=== PATIENT | female | born 1935 | race Caucasian/White ===

== ENCOUNTER 2018-02-24 10:36 | Inpatient (IN) | payer OTHER, MEDICARE ==
[~2018-02-24] VITALS: Ht 160 cm; Wt 59.0 kg
[~2018-02-24 10:36] MED LIST: ALLOPURINOL100 M1 PO; ASPIRIN81 M4 PO; MAGNESIUM OXID400 M1 PO; METFORMIN HCL500 M3 PO; METOPROLOL TART50 M1 PO; NORVASC10 M1 PO; SIMVASTATIN20 M2 PO; VALSARTAN-HCTZ1 EAC1 PO
--- NOTE | 2018-02-24 10:42 | ED SYNCOPE COMPLAINT ---
History of Present Illness General Chief Complaint: Syncope and Near-Syncope Stated Complaint: SYNCOPE Source: patient, family Exam Limitations: no limitations Vital Signs & Intake/Output Vital Signs & Intake/Output Vital Signs Date Time Temp Pulse Resp B/P B/P Pulse O2 O2 Flow FiO2 Mean Ox Delivery Rate 02/24 1755 99.5 102 18 126/90 96 02/24 1744 Room Air Room Air 02/24 1639 98.6 108 20 110/63 93 Room Air Room Air 02/24 1355 98.4 109 22 117/58 96 Room Air 02/24 1309 108 18 118/68 98 Room Air 02/24 1045 97.7 112 20 123/67 93 Room Air Allergies Coded Allergies: No Known Allergies (05/31/17) Triage Nurses Notes Reviewed? 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 Patient states she had a syncopal episode patient is 2 weeks and too much pain to get up where she laid there until the next day with patient then was able to get up Family members found out about the event today and advised patient presents emergency room. Patient did not use her lifeline. Patient at rest denies any pain however upon ambulation complete the bilateral knee pain. Denies any headache fever chills chest pain shortness of breath cough nausea vomiting abdominal pain or low back pain. Patient is complaining of increased frequency of urination. (Karissa BURRIS,Lauri) Reconcile Medications Allopurinol 100 MG TABLET 1 TAB PO DAILY GOUT (Reported) Aspirin (Aspirin*) 81 MG TAB.CHEW 1 TAB PO DAILY heart (Reported) Metformin HCl 500 MG TABLET 1 TAB PO DAILY DIABETES (Reported) Metoprolol Tartrate 50 MG TABLET 0.5 TAB PO BID HEART (Reported) Simvastatin (Simvastatin*) 20 MG TABLET 1 TAB PO QPM CHOLESTEROL (Reported) Valsartan/Hydrochlorothiazide (Valsartan-Hctz 160-12.5 MG Tab) 160 MG-12.5 MG TABLET 1 TAB PO DAILY HEART (Reported) (Chris Mccarthy DO) Past History Travel History Traveled to [place] past 21 day No Medical History Any Pertinent Medical History? see below for history Neurological: vertigo EENT: NONE Cardiovascular: hypertension, hyperlipidemia, IRREGULAR HEART BEAT Respiratory: NONE Gastrointestinal: NONE Hepatic: NONE Renal: NONE Musculoskeletal: NONE Psychiatric: NONE Endocrine: diabetes Blood Disorders: NONE Cancer(s): breast cancer FANCY PACKER/Reproductive: NONE History of MRSA: No History of VRE: No History of CDIFF: No Surgical History Surgical History: non-contributory Psychosocial History Who do you live with Patient/Self What is your primary language Bengali Family History Family History, If Any: maternal grandmother MOTHER FH: diabetes mellitus FATHER FH: myocardial infarction Hx Contributory? No (Lauri Rivero) Review of Systems Review of Systems Constitutional: Reports: see HPI, malaise, weakness. EENTM: Reports: no symptoms. Respiratory: Reports: no symptoms. Cardiovascular: Reports: no symptoms. GI: Reports: no symptoms. Genitourinary: Reports: no symptoms. Musculoskeletal: Reports: see HPI. Skin: Reports: no symptoms. Neurological/Psychological: Reports: no symptoms. All Other Systems: Reviewed and Negative (Lauri Rivero) Physical Exam Physical Exam General Appearance: no apparent distress, alert, comfortable Head: atraumatic Eyes: Bilateral: normal appearance, PERRL, EOMI. Ears, Nose, Throat: normal pharynx, normal ENT inspection Neck: normal inspection, no midline tenderness Respiratory: normal breath sounds, chest non-tender, no respiratory distress Cardiovascular: tachycardia Gastrointestinal: normal bowel sounds, soft, non-tender Psychiatric: awake, alert, oriented x 3 Cranial Nerves: normal hearing, normal speech, PERRL Coordination/Gait: normal finger to nose Skin: intact, normal color Comments: Bilateral upper extremities nontender full active range of motion Lateral knees normal inspection generalized point tenderness noted patient able to perform straight leg raise nontender hip and ankle Core Measures ACS in differential dx? Yes CVA/TIA Diagnosis: No Sepsis Present: No Sepsis Focused Exam Completed? No (Lauri Rivero) Progress Differential Diagnosis: AMI, aortic dissection, aortic valve, drug induced syncope, hyperventilation, orthostatic syncope, other valvular disease, pericardial tamponade, pulmonary embolus, seizure, sick sinus syndrome, subarachnoid hem., TIA/CVA, vasodepressor syncope, ventricular tach/fib Plan of Care: Orders Procedure Date/time Status Consistent Carbohydrate 2 02/24 D Active Pathway - chart 02/24 1824 Active House Staff 02/24 1824 Active Patient Data 02/24 1824 Active Code Status 02/24 1824 Active FingerStick- Glucose 02/24 1752 Active Weight 02/24 1738 Active Vital Signs 02/24 1738 Active Teach/Educate 02/24 1738 Active Pain Treatment and Response 02/24 1738 Active Nutritional Intake, Monitor 02/24 1738 Active Isolation 02/24 1738 Active Intake & Output 02/24 1738 Active Patient Care Conference 02/24 1738 Active Activity/Ambulation 02/24 1738 Active ED Holding Orders 02/24 1554 Active Admit to inpatient 02/24 1554 Active Code Status 02/24 1554 Complete Patient Data 02/24 1553 Active ED Holding Orders 02/24 1539 Active Admit to inpatient 02/24 1539 Active Code Status 02/24 1539 Complete TROPONIN LEVEL 02/24 1517 Complete EKG 02/24 1517 Active URINALYSIS 02/24 1143 Active Telemetry/Lamination Machine Operator 02/24 1057 Active THYROID STIMULATING HORMONE 02/24 1055 Complete TROPONIN LEVEL 02/24 1055 Complete MAGNESIUM 02/24 1055 Complete FREE T4 02/24 1055 Complete COMPREHENSIVE METABOLIC PANEL 02/24 1055 Complete CREATINE PHOSPHOKINASE 02/24 1055 Complete CBC WITHOUT DIFFERENTIAL 02/24 1055 Complete Intake & Output 02/24 1047 Active EKG 02/24 1043 Active VTE Mechanical Prophylaxis 02/24 UNK Active MISTAKE 02/24 UNK Active Telemetry/Lamination Machine Operator 02/24 UNK Active Intake & Output 02/24 UNK Active Hemoccult 02/24 UNK Active FingerStick- Glucose 02/24 UNK Active Current Medications Sig/Kvng Start time Last Medication Dose Stop Time Status Admin Metoprolol Tartrate 25 MG BID 02/24 2100 AC (Lopressor) Atorvastatin Calcium 10 MG 1700 02/24 1830 AC (Lipitor) Allopurinol 100 MG DAILY 02/24 1828 AC (Zyloprim) Aspirin 81 MG DAILY 02/25 1828 AC (Aspirin) Laboratory Tests 02/24/18 1655: Troponin I 0.29 *H 02/24/18 1251: Anion Gap 14, Estimated GFR 43 L, BUN/Creatinine Ratio 25.0, Glucose 234 H, Calcium 9.4, Magnesium 1.2 L, Total Bilirubin 1.0, AST 21, ALT 17, Alkaline Phosphatase 61, Creatine Kinase 42, Troponin I 0.36 *H, Total Protein 7.7, Albumin 4.2, Globulin 3.5, Albumin/Globulin Ratio 1.2, TSH 1.380, Free T4 0.97, CBC w Diff NO MAN DIFF REQ, RBC 4.73, MCV 82.4, MCH 27.6, MCHC 33.5, RDW 15.0 H , MPV 7.5, Gran % 72.6, Lymphocytes % 17.6 L, Monocytes % 9.4 H, Eosinophils % 0.1, Basophils % 0.3, Absolute Granulocytes 7.1 H, Absolute Lymphocytes 1.7, Absolute Monocytes 0.9 H, Absolute Eosinophils 0, Absolute Basophils 0 02/24/18 1056: Creatine Kinase Cancelled Patient on initial presentation resting, bedside was alert and oriented no apparent distress and denies any pain at rest. Patient does have concerns of syncope and new EKG changes of left bundle branch block. gambling monitor placed. CT scan or resulted no acute findings discussed results the patient X-rays are unremarkable for patient's bilateral knee pain. Patient requested pain medications for her knees. Tylenol codeine was administered. Due to new EKG changes and syncope telemetry admission was advised Discussed patient with Dr. Mccarthy was aware patient was also given magnesium supplementation and IV fluids for concern MARIA TERESA Discussed patient with Dr. Kaur who is aware of elevated troponin and admission Upon admission that there is no indication Dr. Kaur to administer heparin Discussed admission with patient and family members were aware had no questions and agreed Diagnostic Imaging: Viewed by Me: Radiology Read, CT Scan. Radiology Impression: no acute abnormality, no fracture Initial ED EKG: sinus tachycardia 110 bpm,lbbb Prior EKG: changed Comments: PATIENT: DILIP MCKINLEY PRESENT AGE: 82 PATIENT ACCOUNT NO: [id number] : 34 LOCATION: [facility] ORDERING PHYSICIAN: Lauri BURRIS SERVICE DATE: 02/24/18 EXAM TYPE: CAT - CT ABD & PELVIS W/O IV CONTRAS; CT CHEST WO IV CONTRAST EXAMINATION: CT ABDOMEN chest, AND PELVIS WITHOUT CONTRAST CLINICAL INFORMATION: Fall with head strike. Syncope. COMPARISON: Chest 07/13/2015 TECHNIQUE: Multidetector volumetric imaging was performed from the superior aspect of the liver through the pubic symphysis. Sagittal and coronal reformatted images were obtained on the technologist's workstation. DLP: 529 mGy-cm FINDINGS CHEST: LUNGS: Both lungs are well-expanded and clear of acute pneumonic consolidation. No mass, consolidation seen. There is small perihilar nodule right lower lobe, axial image 30, series 3, tumor nodule left lower lobe axial image 29, series 3, 4 minute nodule left lower lobe costophrenic sulcus image 275, series 5. Mediastinum: There is a small fibrin nodule right thyroid lobe which appears enlarged. The left thyroid lobe appears unremarkable. The central trachea and bronchi appear widely patent. The coronary artery calcifications present. No pericardial effusion seen. Atherosclerotic calcification of thoracic aorta is noted. A small hiatal hernia is present. Pleura: There is no pleural thickening, effusion or calcified pleural plaques. Axilla: There are surgical stas in left breast and left axilla. No abnormal size lymph nodes or mass seen in the axilla. The chest wall otherwise appears unremarkable. ABDOMEN AND PELVIS: LIVER, GALLBLADDER, AND BILIARY TREE: The liver is normal in size, shape, and attenuation. No focal hepatic lesion or biliary ductal dilatation is present. There is a faint radiopaque 5 mm gallstone without wall thickening of pericholecystic fluid collection. PANCREAS: Unremarkable. SPLEEN: Unremarkable. ADRENAL GLANDS: Unremarkable. KIDNEYS AND URETERS: The kidneys are normal in size, shape, and attenuation. No hydronephrosis, hydroureter, or calculi seen. No perinephric stranding. BLADDER: Unremarkable. GASTROINTESTINAL TRACT: There is diffuse colonic diverticulosis without diverticulitis. There is no colonic or small bowel distention. No free air or free fluid. ABDOMINAL WALL: No significant hernia is appreciated. LYMPH NODES: Normal. VASCULAR: There is atherosclerotic calcification of the entire abdominal aorta without aneurysmal dilatation. Largest segment of abdominal aorta measures 2.4 x 2.4 cm in midabdomen. Mild dilation of the right common iliac arteries noted measuring 1.6 cm axial image 80, series 2. PELVIC VISCERA: There are calcified nodules in left axilla and several stas in the pelvis from previous intervention. The uterus is likely surgically absent or nonvisualized. The bladder is nondistended. Moderate stool and gas is seen in the colon OSSEOUS STRUCTURES: There are degenerative disc changes mid thoracic spine, L5-S1, L4-L5, L3-L4 disc levels. No lytic or sclerotic process seen. IMPRESSION: No acute process seen in the chest or abdomen. There is small bilateral pulmonary nodules. Recommend follow-up as per Fleischner guidelines. No acute consolidation or abnormal mediastinal lymphadenopathy. There is previous left breast surgery and left axillary dissection. There is a postsurgical changes in the pelvis and dense left adnexal calcification. Likely patient has undergone total hysterectomy. Diffuse colonic diverticulosis without diverticulitis. The appendix is normal. Atherosclerotic dilation of right common iliac artery and atherosclerotic changes throughout the abdominal aorta. DICTATED BY: Kory Draper MD DATE/TIME DICTATED:02/24/181303 [employer] SOFTWARE DEVELOPER:STEPAN DATE/TIME TRANSCRIBED:02/24/181303 CONFIDENTIAL, DO NOT COPY WITHOU PATIENT: DILIP MCKINLEY PRESENT AGE: 82 PATIENT ACCOUNT NO: [id number] : 34 LOCATION: [facility] ORDERING PHYSICIAN: Lauri BURRIS SERVICE DATE: 02/24/18 EXAM TYPE: CAT - CT CERV SPINE WO IV CONTRAST; CT HEAD WO IV CONTRAST Addendum: In the impression the first line should correctly read as follows, No acute intracranial process seen. Addendum Signed by: Kory Draper MD 02/24/18 130 EXAMINATION: CT HEAD AND CT CERVICAL SPINE. CLINICAL INFORMATION: Syncope and head strike. COMPARISON: CT brain 05/31/2017 TECHNIQUE: 5 mm thin axial and 2.5 minutes and coronal images of brain were obtained without contrast. Subsequently axial 2.5 minutes and and reformatted 2 mm thin sagittal and coronal images of cervical spine were obtained. DLP 910. FINDINGS: BRAIN: There is no acute intra-axial, extra-axial bleed or midline shift. There is extra-axial calcified left frontal meningioma adjacent cortical compression but no vasogenic edema seen. There is no acute infarct in evolution. The lateral ventricles are enlarged and so other cortical sulci. There is diffuse periventricular hypodensity suggestive of chronic small vessel ischemic changes. Bone windows reveal no calvarial abnormality. The paranasal sinuses and bilateral mastoid air cells are well-aerated. CERVICAL SPINE: Sagittal reconstructed images there is mild straightening of cervical lordosis. The vertebral heights and alignment appears normal. Loss of C5-C6 and C6-C7 disc heights with mild posterior spondylosis at C3-C4 through C6-C7 disc levels is noted. The neural foramina are widely patent. There is bilateral C2-C3, C3-C4, C4-C5 facet joint arthropathy noted. There is a moderate-sized hypodense lesion right thyroid lobe with mild right thyroid lobe enlargement. The prevertebral and paravertebral soft tissues are normal. IMPRESSION: Acute intracranial process seen. Calcified left frontal lobe meningioma is stable. Mild cerebral atrophy and chronic small vessel ischemic changes in both cerebral hemispheres appears stable. No acute fracture or dislocation in cervical spine. Degenerative disc changes C5-C6 and C6-C7 disc levels. There is posterior spondylosis throughout cervical spine. DICTATED BY: Kory Draper MD DATE/TIME DICTATED:02/24/181236 [employer] SOFTWARE DEVELOPER:AVITIA DATE/TIME TRANSCRIBED:02/24/181236 CONFIDENTIAL, DO NOT COPY WITHOUT APPROPRIATE AUTHORIZATION. <Electronically signed in Other Vendor System> SIGNED BY: Kory Draper MD 02/24/18 1248 PATIENT: FRANSISCO THOMAS PRESENT AGE: 71 PATIENT ACCOUNT NO: [id number] : [birth year] LOCATION: [facility] ORDERING PHYSICIAN: Lauri BURRIS SERVICE DATE: 02/24/18 EXAM TYPE: RAD - XRY-PORTABLE CHEST XRAY EXAMINATION: XR PORTABLE CHEST CLINICAL INFORMATION: Shortness of breath. COMPARISON: Prior chest regressed, most recently 08/05/2017 TECHNIQUE: Portable frontal view of the chest was obtained. FINDINGS: There is stable cardiomegaly. The mediastinum is stable and unremarkable, accounting for rotation. The lung garcia are clear, without infiltrate, effusion or pneumothorax. There is no acute osseous abnormality. IMPRESSION: No active cardiopulmonary disease. There is stable cardiomegaly, without congestive heart failure DICTATED BY: Miguel Amaral MD DATE/TIME DICTATED:02/24/181205 [employer] SOFTWARE DEVELOPER:RADRosendaAVITIA DATE/TIME TRANSCRIBED:02/24/181205 CONFIDENTIAL, DO NOT COPY WITHOUT APPROPRIATE AUTHORIZATION. <Electronically signed in Other Vendor System> SIGNED BY: Miguel Amaral MD 02/24/18 1216 (Lauri Rivero) Departure Departure Disposition: STILL A PATIENT Condition: Guarded Clinical Impression Primary Impression: Non-STEMI (non-ST elevated myocardial infarction) Secondary Impressions: MARIA TERESA (acute kidney injury), EKG abnormality, Hypomagnesemia, Knee contusion, Syncope Referrals: Georgina LESLIE,Dilma Ortiz (PCP/Family) Departure Forms: Customer Survey General Discharge Information Admission Note Spoke With: Nelson Hein MD Documentation of Exam: Documentation of any treatments & extenuating circumstances including Concerns Regarding Discharge (functional status, medication knowledge or non-compliance, living conditions, etc.) that warrant an admission rather than observation: [ Patient requires telemetry admission repeat EKG repeat troponin repeat labs cardiology consultation case management consultation] (Lauir Rivero) PA/RETURNED CASE INSPECTOR Co-Sign Statement Statement: ED Attending supervision documentation- [] I saw and evaluated the patient. I have also reviewed all the pertinent lab results and diagnostic results. I agree with the findings and the plan of care as documented in the PA's/RETURNED CASE INSPECTOR's documentation. [X] I have reviewed the ED Record and agree with the PA's/RETURNED CASE INSPECTOR's documentation. [] Additions or exceptions (if any) to the PAs/RETURNED CASE INSPECTOR's note and plan are summarized below: [] (Chris Mccarthy DO)
--- NOTE | 2018-02-24 12:48 | CT SCAN REPORT ---
EXAMINATION: CT HEAD AND CT CERVICAL SPINE. CLINICAL INFORMATION: Syncope and head strike. COMPARISON: CT brain 05/31/2017 TECHNIQUE: 5 mm thin axial and 2.5 minutes and coronal images of brain were obtained without contrast. Subsequently axial 2.5 minutes and and reformatted 2 mm thin sagittal and coronal images of cervical spine were obtained. DLP 910. FINDINGS: BRAIN: There is no acute intra-axial, extra-axial bleed or midline shift. There is extra-axial calcified left frontal meningioma adjacent cortical compression but no vasogenic edema seen. There is no acute infarct in evolution. The lateral ventricles are enlarged and so other cortical sulci. There is diffuse periventricular hypodensity suggestive of chronic small vessel ischemic changes. Bone windows reveal no calvarial abnormality. The paranasal sinuses and bilateral mastoid air cells are well-aerated. CERVICAL SPINE: Sagittal reconstructed images there is mild straightening of cervical lordosis. The vertebral heights and alignment appears normal. Loss of C5-C6 and C6-C7 disc heights with mild posterior spondylosis at C3-C4 through C6-C7 disc levels is noted. The neural foramina are widely patent. There is bilateral C2-C3, C3-C4, C4-C5 facet joint arthropathy noted. There is a moderate-sized hypodense lesion right thyroid lobe with mild right thyroid lobe enlargement. The prevertebral and paravertebral soft tissues are normal. IMPRESSION: Acute intracranial process seen. Calcified left frontal lobe meningioma is stable. Mild cerebral atrophy and chronic small vessel ischemic changes in both cerebral hemispheres appears stable. No acute fracture or dislocation in cervical spine. Degenerative disc changes C5-C6 and C6-C7 disc levels. There is posterior spondylosis throughout cervical spine.
--- NOTE | 2018-02-24 13:12 | RADIOLOGY REPORT ---
EXAMINATION: XR KNEE, RIGHT XR KNEE, LEFT CLINICAL INFORMATION: Bilateral knee pain. Fall. COMPARISON: None TECHNIQUE: AP, lateral, and both oblique views of each knee. FINDINGS: RIGHT KNEE: Chondrocalcinosis is present in the medial and lateral compartments. Bones are osteopenic. Osteoarthritis in the medial and patellofemoral compartments is characterized by joint space narrowing, articular surface irregularity, and marginal osteophytes. More mild osteoarthritis is present in the lateral compartment. No joint effusion. Calcific atherosclerosis is present in the runoff arteries. LEFT KNEE: No fracture or malalignment. Bones are osteopenic. There is moderate to severe medial compartment osteoarthritis with marked joint space narrowing, small marginal osteophytes, subchondral sclerosis, and vacuum phenomenon. More mild to moderate osteoarthritis present in the lateral and patellofemoral compartments. There is marked chondrocalcinosis. Trace joint effusion. Calcific atherosclerosis is present in the popliteal and runoff arteries. IMPRESSION: 1. No acute fracture or malalignment. 2. 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 3. Trace left knee joint effusion. 4. Marked chondrocalcinosis
[2018-02-24 13:13] LABS: ABSOLUTE BASOPHIL COUNT 0 /CUMM (0.0-0.2); ABSOLUTE EOSINOPHIL COUNT 0 /CUMM (0.0-0.7); ABSOLUTE GRANULOCYTE CT 7.1 /CUMM (1.4-6.5); ABSOLUTE LYMPH COUNT 1.7 /CUMM (1.2-3.4); ABSOLUTE MONOCYTE COUNT 0.9 /CUMM (0.10-0.60); BASOPHIL % 0.3 % (0.0-2.0); EOSINOPHIL % 0.1 % (0-5); GRANULOCYTE % 72.6 % (42.2-75.2); MEAN CORPUSCULAR HGB 27.6 PG (27.0-31.0); MEAN CORPUSCULAR HGB CONC 33.5 G/DL (33.0-37.0); MEAN CORPUSCULAR VOLUME 82.4 FL (81.0-99.0); MEAN PLATELET VOLUME 7.5 FL (7.4-10.4); PLATELET COUNT 232 /CUMM (130-400); RED BLOOD CELL CT 4.73 /CUMM (4.20-5.40); WHITE BLOOD CELL COUNT 9.7 /CUMM (4.8-10.8)
--- NOTE | 2018-02-24 13:21 | CT SCAN REPORT ---
EXAMINATION: CT ABDOMEN chest, AND PELVIS WITHOUT CONTRAST CLINICAL INFORMATION: Fall with head strike. Syncope. COMPARISON: Chest 07/13/2015 TECHNIQUE: Multidetector volumetric imaging was performed from the superior aspect of the liver through the pubic symphysis. Sagittal and coronal reformatted images were obtained on the technologist's workstation. DLP: 529 mGy-cm FINDINGS CHEST: LUNGS: Both lungs are well-expanded and clear of acute pneumonic consolidation. No mass, consolidation seen. There is small perihilar nodule right lower lobe, axial image 30, series 3, tumor nodule left lower lobe axial image 29, series 3, 4 minute nodule left lower lobe costophrenic sulcus image 275, series 5. Mediastinum: There is a small fibrin nodule right thyroid lobe which appears enlarged. The left thyroid lobe appears unremarkable. The central trachea and bronchi appear widely patent. The coronary artery calcifications present. No pericardial effusion seen. Atherosclerotic calcification of thoracic aorta is noted. A small hiatal hernia is present. Pleura: There is no pleural thickening, effusion or calcified pleural plaques. Axilla: There are surgical stas in left breast and left axilla. No abnormal size lymph nodes or mass seen in the axilla. The chest wall otherwise appears unremarkable. ABDOMEN AND PELVIS: LIVER, GALLBLADDER, AND BILIARY TREE: The liver is normal in size, shape, and attenuation. No focal hepatic lesion or biliary ductal dilatation is present. There is a faint radiopaque 5 mm gallstone without wall thickening of pericholecystic fluid collection. PANCREAS: Unremarkable. SPLEEN: Unremarkable. ADRENAL GLANDS: Unremarkable. KIDNEYS AND URETERS: The kidneys are normal in size, shape, and attenuation. No hydronephrosis, hydroureter, or calculi seen. No perinephric stranding. BLADDER: Unremarkable. GASTROINTESTINAL TRACT: There is diffuse colonic diverticulosis without diverticulitis. There is no colonic or small bowel distention. No free air or free fluid. ABDOMINAL WALL: No significant hernia is appreciated. LYMPH NODES: Normal. VASCULAR: There is atherosclerotic calcification of the entire abdominal aorta without aneurysmal dilatation. Largest segment of abdominal aorta measures 2.4 x 2.4 cm in midabdomen. Mild dilation of the right common iliac arteries noted measuring 1.6 cm axial image 80, series 2. PELVIC VISCERA: There are calcified nodules in left axilla and several stas in the pelvis from previous intervention. The uterus is likely surgically absent or nonvisualized. The bladder is nondistended. Moderate stool and gas is seen in the colon OSSEOUS STRUCTURES: There are degenerative disc changes mid thoracic spine, L5-S1, L4-L5, L3-L4 disc levels. No lytic or sclerotic process seen. IMPRESSION: No acute process seen in the chest or abdomen. There is small bilateral pulmonary nodules. Recommend follow-up as per Fleischner guidelines. No acute consolidation or abnormal mediastinal lymphadenopathy. There is previous left breast surgery and left axillary dissection. There is a postsurgical changes in the pelvis and dense left adnexal calcification. Likely patient has undergone total hysterectomy. Diffuse colonic diverticulosis without diverticulitis. The appendix is normal. Atherosclerotic dilation of right common iliac artery and atherosclerotic changes throughout the abdominal aorta.
--- NOTE | 2018-02-24 16:58 | History & Physical ---
Jimmie Titus 02/24/18 0664: General Information and HPI MD Statement: I have seen and personally examined DILIP MCKINLEY and documented this H&P. 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 According to the patient, she passed out on Saturday night, woke up Saturday morning, does not remember the events in between. She denies feeling dizzy or lightheaded at the time of events. She initially fell and hit anterior aspect of her knees then fell backwards and hit her head. The patient has presented to the hospital with similar symptoms in past, she has Linq monitor. The patient denies exertional dyspnea or chest pain. The patient states that she has not been drinking enough water, she is incontinent of urine and is affraid to have "accidents" if she drinks water. Denies tobacco, EtOH or illicit drug use. Allergies/Medications Allergies: Coded Allergies: No Known Allergies (05/31/17) Home Med list Allopurinol 100 MG TABLET 1 TAB PO DAILY GOUT (Reported) Aspirin (Aspirin*) 81 MG TAB.CHEW 1 TAB PO DAILY heart (Reported) Metformin HCl 500 MG TABLET 1 TAB PO DAILY DIABETES (Reported) Metoprolol Tartrate 50 MG TABLET 0.5 TAB PO BID HEART (Reported) Simvastatin (Simvastatin*) 20 MG TABLET 1 TAB PO QPM CHOLESTEROL (Reported) Valsartan/Hydrochlorothiazide (Valsartan-Hctz 160-12.5 MG Tab) 160 MG-12.5 MG TABLET 1 TAB PO DAILY HEART (Reported) Past History Travel History Traveled to [place] past 21 day No Medical History Neurological: vertigo EENT: NONE Cardiovascular: hypertension, hyperlipidemia, IRREGULAR HEART BEAT Respiratory: NONE Gastrointestinal: NONE Hepatic: NONE Renal: NONE Musculoskeletal: NONE Psychiatric: NONE Endocrine: diabetes Blood Disorders: NONE Cancer(s): breast cancer 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 Denies: chills, diaphoresis, fever, malaise. EENTM: Denies: blurred vision, double vision, visual changes, eye pain, eye drainage, eye tearing, icterus, ear discharge, ear pain, ear redness, hearing changes, nasal congestion, epistaxis, nasal pain, throat pain. Cardiovascular: Reports: syncope. Denies: chest pain, edema, orthopena, palpitations, peripheral edema. Respiratory: Denies: cough, hemoptysis, orthopnea, short of breath, sputum production, stridor, wheezing. GI: Reports: no symptoms. Denies: abdominal pain. Genitourinary: Reports: see HPI. Denies: discharge, dysuria. Musculoskeletal: Reports: no symptoms. Skin: Reports: no symptoms. Neurological/Psychological: Reports: no symptoms. Hematologic/Endocrine: Reports: no symptoms. Immunologic/Allergic: Reports: no symptoms. All Other Systems: Reviewed and Negative Exam & Diagnostic Data Last 24 Hrs of Vital Signs/I&O Vital Signs Date Time Temp Pulse Resp B/P B/P Pulse O2 O2 Flow FiO2 Mean Ox Delivery Rate 02/24 1639 98.6 108 20 110/63 93 Room Air Room Air 02/24 1355 98.4 109 22 117/58 96 Room Air 02/24 1309 108 18 118/68 98 Room Air 02/24 1045 97.7 112 20 123/67 93 Room Air Intake & Output 02/24 1600 02/24 0800 02/24 0000 Intake Total 0 Output Total Balance 0 Intake, Oral 0 Patient 148 lb Weight Weight Reported by Patient Measurement Method Physical Exam General Appearance Alert, Oriented X3, Cooperative, No Acute Distress Skin No Rashes Skin Temp/Moisture Exam: Warm/Dry Sepsis Skin Exam (color): Normal for Ethnicity HEENT Atraumatic, PERRLA, EOMI, Mucous Membr. moist/pink Neck Supple Lymphatic Cervical nl Cardiovascular Regular Rate, systolic murmur Lungs Clear to Auscultation, Normal Air Movement Abdomen Normal Bowel Sounds, Soft, No Tenderness, No Hepatospenomegaly, No Masses Neurological Normal Speech, Strength at 5/5 X4 Ext, Normal Tone, Sensation Intact, Cranial Nerves 3-12 NL, Reflexes 2+ Extremities No Clubbing, No Cyanosis, No Edema, Normal Pulses, No Tenderness/ Swelling Vascular Normal Pulses, Pulses Symmetrical Assessment/Plan Assessment: This is a 82 year old female with PMH of DM, h/o TIA, shingles infection with mcfp gait instability who presents for further evaluation of syncope. In the ED, she was noted to have LBBB, positive troponin. Problem list: -Syncope -elevated troponin-peaked -LBBB-intermittent -Elevated creatinine -Hypo mg -Meningioma -bilateral pulmonary nodules Plan: -Vital signs per protocol -Monitor on telemetry -Accuchecks, INS SS -Troponin peaked -Cardiology was consulted in the ED, I also spoke with supervising producer Dr. Kaur with whom patient follows as an outpatient. Per Dr. Kaur, patient has h/o intermittent LBBB in her prior EKGs, he also does not recommend to start the patient on IV heparin at this point. However, if the patient develops chest pain , this should be reconsidered. -Follow cardiology recs. -Received Mg IV in the ED; recheck tomorrow -Maintain K>4 and Mg>2 -C/w metoprolol, statin, aspirin -echocardiogram -encourage oral hydration -may benefit from pacemaker placement. -Consider further evaluation for meningioma, patient was not aware of the finding, asymptomatic -Outpatient follow up for pulmonary nodules. -DVT PPX: SC heparin -Pt full code As Ranked By This Provider Problem List: 1. Syncope Core Measures/Misc (06/23) Acute Coronary Syndrome ACS Diagnosis: No Congestive Heart Failure Congestive Heart Failure Diagnosis No Cerebrovascular Accident CVA/TIA Diagnosis: No VTE (View Protocol) VTE Risk Factors Age>40 No Mechanical VTE Prophylaxis d/t N/A MechProphylax Ordered No VTE Pharm Prophylaxis d/t NA PharmProphylax ordered Sepsis (View protocol) Sepsis Present: No Nelson Hein MD 02/24/18 0688: Attending MD Review Statement Attending Statement Attending MD Statement: examined this patient, discuss w/resident/PA/AIR QUALITY TECHNICIAN, agreed w/resident/PA/AIR QUALITY TECHNICIAN, discussed with family, reviewed EMR data (avail), reviewed images, amended to note Attending Assessment/Plan: The patient is an 82 yo female with h/o DM2, TIA, HTN, HL, 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 She denied any prodrome, however fell backwards and hit her head. She waited until she "came out of it and states she had another episode. She did not take her mediation last 2 days. She has a Linq monitor. She denied any chest pain, dyspnea, palpitations, etc. At the time of my exam she was alert & oriented. Physical Exam: VS: T 98.6, P 112-108, R 20, BP 110/63, PO 98% RA HEENT: eyes- PERRLA, EOMI wilmer- moist mucosa Neck: no bruits or JVD Chest: clear Cor: RRR nl S1, S2 + 3/6 sys murm at LSB Abd: BS+, soft, NT, - HSM Ext: no edema, pulses 1+ Neuro: alert & oriented, non-focal exam Labs/Tests- as above. Impression/Plan: #S/P Syncope- may have had previous events. No chest pain, palpitations, etc. Possible arrhythmia? Plan: Admit to telemetry with continuous monitoring. #Elevated Troponin Level- concern regarding potential type II [place]. Plan: Will trend troponins . Cardiology consult- Dr. Troncoso group. If troponins continue to rise will start heparin. #LBBB- Dr. Kaur has seen on recent EKG. Plan: Follow troponins. Await cardiology input. #DM2- on metformin at home. Plan: Will resume metformin when close to discharge. #Hyperlipidemia- on Simvastatin. Plan: Continue Simvastatin. #Gout: on allopurinol. Plan: Continue allopurinol.
[2018-02-24 17:55] VITALS: BP 126/90
--- NOTE | 2018-02-24 21:53 | Admission Certification ---
Admission Certification Certification Statement - As attending physician, I certify that at the time of - admission, based on clinical presentation, severity of - symptoms, need for further diagnostic testing and - therapeutic interventions, and risk of adverse outcomes - without in-hospital treatment, in my clinical assessment, - this patient requires an acute hospital stay for a minimum - of two nights or longer. I have also considered psychsocial - factors such as support system, advanced age, financial - issues, cognitive issues, and failed out-patient treatments, - past re-admission history, safety of patient, and lack of - compliance as applicable. Specific rationale supporting this admission is: The patient presents for syncope and collapse x 2 events. Has LBBB on EKG and concern about tachy or stas arrhythmia. Also with elevated troponin level- ? type 2 [place]. Needs admission to telemetry, serial troponin levels, Cardiology consult Dr. Kaur. If troponin increasing will need IV heparin.
[2018-02-24 22:20] VITALS: BP 146/84
[2018-02-25 06:31] VITALS: BP 110/60
[2018-02-25 08:00] LABS: ABSOLUTE BASOPHIL COUNT 0 /CUMM (0.0-0.2); ABSOLUTE EOSINOPHIL COUNT 0.1 /CUMM (0.0-0.7); ABSOLUTE GRANULOCYTE CT 7.5 /CUMM (1.4-6.5); ABSOLUTE LYMPH COUNT 1.5 /CUMM (1.2-3.4); ABSOLUTE MONOCYTE COUNT 1.1 /CUMM (0.10-0.60); BASOPHIL % 0.3 % (0.0-2.0); EOSINOPHIL % 0.5 % (0-5); HEMATOCRIT 35.2 % (37-47); MEAN CORPUSCULAR HGB 27.4 PG (27.0-31.0); MEAN CORPUSCULAR HGB CONC 33.2 G/DL (33.0-37.0); MEAN CORPUSCULAR VOLUME 82.4 FL (81.0-99.0); MEAN PLATELET VOLUME 7.8 FL (7.4-10.4); PLATELET COUNT 219 /CUMM (130-400); RBC DISTRIBUTION WIDTH 14.8 % (11.5-14.5); RED BLOOD CELL CT 4.27 /CUMM (4.20-5.40); WHITE BLOOD CELL COUNT 10.1 /CUMM (4.8-10.8)
--- NOTE | 2018-02-25 08:02 | PN- Housestaff ---
Stanley LESLIE,Shirley 02/25/18 0801: Subjective Follow-up For: Syncope MARIA TERESA Type II [place] Vertigo Tele-Events Since Last Visit: NSR 80-112 Subjective: Patient was seen and examined today. Patient was tearful on examination today. Reports being afraid that she is going to . Patient reports dizziness, lightheadedness and continued blurry vision (states this is chronic). Patient denies chest pain, palpitations, double vision, shortness of breath, abdominal pain, n/v, hematuria/dysuria. Patient reports increased urinary frequency and incontinence over the past several weeks. No acute events overnight. This monring patient's bp: 90/46. Review of Systems Constitutional: Reports: see HPI. Objective Last 24 Hrs of Vital Signs/I&O Vital Signs Date Time Temp Pulse Resp B/P B/P Pulse O2 O2 Flow FiO2 Mean Ox Delivery Rate 02/25 1055 102/58 02/25 0837 88 92/40 02/25 0631 98.1 87 20 110/60 92 Room Air 02/24 2220 100.1 112 21 146/84 91 02/24 2140 102 140/88 02/24 1755 99.5 102 18 126/90 96 02/24 1744 Room Air Room Air 02/24 1639 98.6 108 20 110/63 93 Room Air Room Air 02/24 1355 98.4 109 22 117/58 96 Room Air Intake & Output 02/25 1600 02/25 0800 02/25 0000 Intake Total 150 400 Output Total 250 325 Balance -100 75 Intake, Oral 150 400 Output, Urine 250 325 Patient 150 lb Weight Physical Exam General Appearance: Alert, Oriented X3, Cooperative, No Acute Distress Skin: No Rashes Skin Temp/Moisture Exam: Warm/Dry HEENT: Atraumatic, PERRLA, EOMI, Mucous Membr. moist/pink Cardiovascular: Regular Rate, Normal S1, Normal S2 Lungs: Clear to Auscultation, Normal Air Movement Abdomen: Normal Bowel Sounds, Soft, No Tenderness Neurological: Normal Speech, Normal Tone, Sensation Intact, Cranial Nerves 3-12 NL, strength 5/5 in all extremities except right leg limited due to knee pain Extremities: No Clubbing, No Cyanosis, No Edema, Normal Pulses, No Tenderness/ Swelling Vascular: Normal Pulses, Pulses Symmetrical Current Medications: Current Medications Sig/Kvng Start time Last Medication Dose Route Stop Time Status Admin Acetaminophen 500 MG Q6P PRN 02/24 2115 AC PO Allopurinol 100 MG DAILY 02/24 182 AC 02/25 PO 0833 Aspirin 81 MG DAILY 02/24 182 AC 02/25 PO 0833 Atorvastatin Calcium 10 MG 1700 02/24 1830 AC 02/24 PO 2140 Heparin Sodium 5,000 UNIT Q8 02/24 2200 AC 02/25 (Porcine) SC 1259 Insulin Aspart 0 TIDAC 02/25 0800 AC 02/25 SC 1257 Magnesium Oxide 400 MG ONE ONE 02/25 1115 DC 02/25 PO 02/25 1116 1257 Magnesium Sulfate 1 GM ONCE ONE 02/24 1330 DC 02/24 Dextrose/Water 100 ML IV 02/24 1729 1345 Metoprolol Tartrate 25 MG BID 02/24 2100 AC 02/24 PO 2140 Sodium Chloride 1,000 ML Q13H 02/25 0830 AC 02/25 IV 02/25 212 0847 Sodium Chloride 250 ML BOLUS ONE 02/24 1345 DC 02/24 IV 02/24 1444 1709 Tramadol HCl 50 MG Q6P PRN 02/24 2130 02/25 PO 0631 Last 24 Hrs of Lab/Gamal Results Last 24 Hrs of Labs/Mics: Laboratory Tests 02/25/18 0612: Anion Gap 16, Estimated GFR 31 L, BUN/Creatinine Ratio 23.1, Magnesium 1.5 L, Creatine Kinase 31, CBC w Diff NO MAN DIFF REQ, RBC 4.27, MCV 82.4, MCH 27.4, MCHC 33.2, RDW 14.8 H, MPV 7.8, Gran % 74.0, Lymphocytes % 14.4 L, Monocytes % 10.8 H, Eosinophils % 0.5, Basophils % 0.3, Absolute Granulocytes 7.5 H, Absolute Lymphocytes 1.5, Absolute Monocytes 1.1 H, Absolute Eosinophils 0.1, Absolute Basophils 0 02/25/18 0200: Troponin I 0.25 *H 02/24/182135: Urinalysis LIGHT H, Urine Color YEL, Urine Clarity HAZY H, Urine pH 6.0, Ur Specific [place] 1.025, Urine Protein 30 H, Urine Ketones NEG, Urine Nitrite NEG, Urine Bilirubin NEG@ICTO, Urine Urobilinogen 0.2, Ur Leukocyte Esterase SMALL H, Ur Microscopic SEDIMENT EXAMINED, Urine RBC 1-3, Urine WBC 15-25 H, Ur Epithelial Cells FEW, Urine Bacteria MANY H, Urine Hemoglobin TRACE-INTACT, Urine Glucose NEG 02/24/18 1655: Troponin I 0.29 *H Microbiology 02/25 0820 URINE ROUT: Urine Culture - COLB Assessment/Plan Assessment: Patient is an 82 year old female with PMH of DM, h/o TIA, HTN, hyperlipidemia, [place]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 Patient is currently being managed on the telemetry floor for the followin. Syncope It is unclear what the patient's syncope is from. It may be multifactorial. Patient has been evaluated by cardiology outpatient. Has a linq recorder which was placed in 2017 due to previous episodes of presyncope. Patient also has had a poor appetite over the past several weeks with borderline hypotension today in thes 90s/40s. Patient has been evaluated by a neurologist and was diagnosed with vertigo which has also been attributed to her syncopal episodes. - cardiology consulted. appreciate recommendations - continue telemetry monitoring - hold antihypertensives in setting of hypotension - IV fluid hydration - obtain records from neurologist - LINQ medotronic interrogation - ECHO pending - PT evaulation for vertigo 2. MARIA TERESA Likely prerenal azotemia secondary to poor oral intake. - IV fluid hydration - continue to monitor I/O and BUN/Cr - avoid nephrotoxic agents 3. Type II [place] Elevated troponin peaked to 0.36 and downtrended to 0.25. Likely supply demand mismatch in setting of hypotension and MARIA TERESA however need to rule out cardiac etiology. - cardiology consulted. appreciate recommendations - ECHO pending 4. Electrolytes- hypomagnesemia - repleted magnesium - continue to monitor and replete as needed Chronic conditions: - continue atorvastatin, aspirin, allopurinol - hold oral hypoglycemic agents - accuchecks TID/qHS with novolog SS - hold metoprolol in setting of hypotension DVT PPx: SQ Heparin Diet: Diabetic diet Code: Full code Problem List: 1. Syncope 2. Vertigo 3. MARIA TERESA (acute kidney injury) Pain Ratin Pain Location: right knee Pain Goal: Pain 4 or less Pain Plan: tylenol tramadol Tomorrow's Labs & Rationales: cbc Rafael Lane MD 02/25/18 1109: Attending MD Review Statement Attending Statement Attending MD Statement: examined this patient, discuss w/resident/PA/RECLAMATION WORKER, agreed w/resident/PA/RECLAMATION WORKER, reviewed EMR data (avail) Attending Assessment/Plan: 82F PMH DM2, TIA, HTN, HL, Guillain [place] syndrome, h/o shingles with chronic vertigo admitted for syncopal episode, down for >12 hours, with labs showing elevated troponin, low magnesium, with normal EKG. Patient feels slightly lightheaded today. She is mildly hypotensive 90/46. Creatinine increased to 1.6 today. Troponin peaked 0.36. No telemetry events. 1. Syncope and collapse 2. Type 2 myocardial infarction 3. MARIA TERESA 4. Vertigo 5. Hypomagnesemia Plan - Continue on telemetry - IV hydration - Monitor renal function - Replete magnesium - PT evaluation for possible inpatient vestibular rehabilitation - Follow cardiology recommendations - Continue home medications - DVT PPx
[2018-02-25 10:55] VITALS: BP 102/58
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
--- NOTE | 2018-02-25 13:56 | PN- Student ---
Timothy Pineda 02/25/18 1340: Subjective Subjective: No overnight events reported. Patient is anxious and concerned about her health status. She states she still feels lightheaded today and reports decreased appetite. She reports that she had 2-3 weeks of indigestion and difficulty swallowing prior to coming in to the hospital. She continues to have left knee pain after sustaining injury to the knee after falling on Saturday. Objective Objective: Current Medications Sig/Kvng Start time Last Medication Dose Route Stop Time Status Admin Acetaminophen 500 MG Q6P PRN 02/24 2115 AC PO Allopurinol 100 MG DAILY 02/24 182 AC 02/25 PO 0833 Aspirin 81 MG DAILY 02/24 182 AC 02/25 PO 0833 Atorvastatin Calcium 10 MG 1700 02/24 1830 AC 02/24 PO 2140 Heparin Sodium 5,000 UNIT Q8 02/24 2200 AC 02/25 (Porcine) SC 1259 Insulin Aspart 0 TIDAC 02/25 0800 AC 02/25 SC 1257 Magnesium Oxide 400 MG ONE ONE 02/25 1115 DC 02/25 PO 02/25 1116 1257 Magnesium Sulfate 1 GM ONCE ONE 02/24 1330 DC 02/24 Dextrose/Water 100 ML IV 02/24 1729 1345 Metoprolol Tartrate 25 MG BID 02/24 2100 AC 02/24 PO 2140 Sodium Chloride 1,000 ML Q13H 02/25 0830 AC 02/25 IV 02/25 2129 0847 Sodium Chloride 250 ML BOLUS ONE 02/24 1345 DC 02/24 IV 02/24 1444 1709 Tramadol HCl 50 MG Q6P PRN 02/24 2130 AC 02/25 PO 0631 Laboratory Tests 02/25 02/25 0612 0200 Chemistry Sodium (137 - 145 mmol/L) 135 L Potassium (3.5 - 5.1 mmol/L) 4.4 Chloride (98 - 107 mmol/L) 96 L Carbon Dioxide (22 - 30 mmol/L) 23 Anion Gap (5 - 16) 16 BUN (7 - 17 mg/dL) 37 H Creatinine (0.5 - 1.0 mg/dL) 1.6 H Estimated GFR (>60 ml/min) 31 L BUN/Creatinine Ratio (7 - 25 %) 23.1 Magnesium (1.6 - 2.3 mg/dL) 1.5 L Creatine Kinase (30 - 135 U/L) 31 Troponin I (< 0.11 ng/ml) 0.25 *H Hematology CBC w Diff NO MAN DIFF REQ WBC (4.8 - 10.8 /CUMM) 10.1 RBC (4.20 - 5.40 /CUMM) 4.27 Hgb (12.0 - 16.0 G/DL) 11.7 L Hct (37 - 47 %) 35.2 L MCV (81.0 - 99.0 FL) 82.4 MCH (27.0 - 31.0 PG) 27.4 MCHC (33.0 - 37.0 G/DL) 33.2 RDW (11.5 - 14.5 %) 14.8 H Plt Count (130 - 400 /CUMM) 219 MPV (7.4 - 10.4 FL) 7.8 Gran % (42.2 - 75.2 %) 74.0 Lymphocytes % (20.5 - 51.1 %) 14.4 L Monocytes % (1.7 - 9.3 %) 10.8 H Eosinophils % (0 - 5 %) 0.5 Basophils % (0.0 - 2.0 %) 0.3 Absolute Granulocytes (1.4 - 6.5 /CUMM) 7.5 H Absolute Lymphocytes (1.2 - 3.4 /CUMM) 1.5 Absolute Monocytes (0.10 - 0.60 /CUMM) 1.1 H Absolute Eosinophils (0.0 - 0.7 /CUMM) 0.1 Absolute Basophils (0.0 - 0.2 /CUMM) 0 02/24 02/24 2136 1655 Chemistry Troponin I (< 0.11 ng/ml) 0.29 *H Urines Urinalysis LIGHT H Urine Color (YEL,AMB,STR) YEL Urine Clarity (CLEAR) HAZY H Urine pH (5.0 - 8.0) 6.0 Ur Specific [place] (1.001 - 1.035) 1.025 Urine Protein (NEG,<30 MG/DL) 30 H Urine Ketones (NEG) NEG Urine Nitrite (NEG) NEG Urine Bilirubin (NEG) NEG@ICTO Urine Urobilinogen (0.1 - 1.0 EU/dl) 0.2 Ur Leukocyte Esterase (NEG) SMALL H Ur Microscopic SEDIMENT EXAMINED Urine RBC (0 - 5 /HPF) 1-3 Urine WBC (0 - 2 /HPF) 15-25 H Ur Epithelial Cells (NONE,FEW) FEW Urine Bacteria (NEG/NONE) MANY H Urine Hemoglobin (NEG) TRACE-INTACT Urine Glucose (N MG/DL) NEG Microbiology Date/Time Procedure - Status Source Growth 02/26 820 Urine Culture - COLB URINE ROUT Vital Signs Date Time Temp Pulse Resp B/P B/P Pulse O2 O2 Flow FiO2 Mean Ox Delivery Rate 02/25 1055 102/58 02/25 0837 88 92/40 02/25 0631 98.1 87 20 110/60 92 Room Air 02/24 2220 100.1 112 21 146/84 91 02/24 2140 102 140/88 02/24 1755 99.5 102 18 126/90 96 02/24 1744 Room Air Room Air 02/24 1639 98.6 108 20 110/63 93 Room Air Room Air 02/24 1355 98.4 109 22 117/58 96 Room Air Intake & Output 02/25 1600 02/25 0800 02/25 0000 Intake Total 150 400 Output Total 250 325 Balance -100 75 Intake, Oral 150 400 Output, Urine 250 325 Patient 150 lb Weight Physical Exam General Apperance: no evidence of acute distress, AOx3, resting comfortably in bed HEENT: Glasses, normal sclera, 20/50 OD, 20/30 OS, bilateral hearing aides in place CV: diminished S1&S2, normal rhythm and rate, no MRG Lungs: clear to ausculatation, no evidence of wheeze, rub, rhonchi or rales Neuro: residual lower right sided facial weakness present, diminished hearing on right side (hearing aide battery needs replacement) when compared to left side ( hearing aide working), no diminished sensation, unable to test for strength in left leg due to knee injury, 5/5 muscle strength in upper extremities and firm hand quarter inspector, normal ocular movements Assessment/Plan Assessment: Ms. 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 Ms. Peterson states that on Saturday02/22/18 she felt lightheaded and passed out falling to the floor sometime in the evening. She states she woke up Saturday morning 02/23/18 after being on the floor after falling the day before and then rested in a chair feeling very sleepy the entire day on Saturday. She then presented to the ED the following day for continued lightheadedness and to evaluate the syncopal episode. She states she had been hospitalized for a similar event that occured 9 months ago. She was admited to the telemtry unit as it was discovered she had a positive troponin. Plan: Problem List 1. Syncope 2. Elevated troponin 3. MARIA TERESA 4. Dysphagia/Acid reflux 5. Left knee pain 6. hypomagnesia 7. Small Pulmonary nodules 8. chronic medical conditions #Syncope: Patient reports syncopal episode and having fallen on Saturday02/23/18 with no recollection. She also was reported to have injured her left knee and hit her head in this fall as well. She has a history of chronic vertigo as the result of facial shingles that occured in 2005. She also reports a similar event occuring in 05/2017, Echo at that time revealed LVEF 55% and a sinus rhythm with PACs, a Stress test 06/03/18 showed normal persantine stress and resting myocardial perfusion. Additionally a doppler study of her carotids on 06/20/17 revealed plaque occupying the internal caroids however velocity measurments were normal and no significant stenosis was noted. CT of the head when she first arrived 02/24/18 did not reveal acute bleeding, however it did show a consistent calcified meningioma in the left frontal lobe. These findings were consistent with the previous CT obtained after her syncopal episode in 05/2017, additionally both studies indicate chronic small vessel ischemic changes. When patient first arrived it was suspected that LBBB on EKG was a new finding however Dr. Kaur her information and referral director reports previous EKGs with evidence of prior LBBB. It is unclear at this time if this syncopal episode is related to the patient's chronic veritigo or if it is related to cardiac pathology. A signed consent for request of medical records from neurologist, Dr. Dickerson has been placed and we are awaiting detailed reports of her neurologic history. -continue to monitor EKG and Troponin levels -continue court recording monitor -appreciate cardiology recommendations -obtain records from Dr. Dickerson -neurology consultation -hold antihypertensive medication #Elevated troponin: Patient presented with a troponin of 0.36 02/24/18 and has been down trending since her admission. As discussed earlier, EKG showed LBBB which has been demonstrated on previous EKGs in Dr. Kaur's office. Dr. Kaur also plans to interrogate her [employer] LINQ recorder which was placed after her last syncopal episode in 05/2017. Dr. Kaur suspects that the troponin elevation is due to type II MN. Ms. Peterson has also reported that she has had symptoms of acid reflux, however these have been present for 2-3 weeks. She also reports difficulty with swallowing food and that it gets stuck in her throat on occasion. -appreciate cardiology recommendations -continue cardiac monitoring -continue to follow EKG and troponin testing #MARIA TERESA: Patient had elevated BUN and Cr on admission to the hospital and slight elevation seen today in these labs. She has had poor oral intake due to difficulty with swallowing and admits to improper hydration. She also has a history of Diabetes, however given the urine sample it does not appear to be a nephrotic type picture. Rather this is likely hypovolemic type state causing a prerenal MARIA TERESA. -encourage oral hydration and food intake -IV NaCl 0.9% -continue to follow CMP -follow I&O's -avoid nephrotoxins #Dysphagia/Acid reflux: Patient reports trouble swallowing foods and that it feels as if food gets stuck in her throat for a duration of 2-3 weeks prior to presenting to the hospital. She also includes that she has had decreased appetite in relation to these symptoms. Accompanying the dysphagia the patient includes having acid reflux over the same course of time. With elevated Troponin 's on the differential can be included inferior wall MN. However the course of the patient's symptoms suggests GERD. -Consider PPI initiation -Consider GI consult -Endoscopy as outpatient -consider swallow eval #Left knee pain: When patient fell following syncopal episode she reports having left knee pain. She reports pain on palpation of the left knee and reluctance to move that lower extremity. She had an XRay of the left and right knees when she presented to the hospital which did not reveal acute fracture, however it did reveal some joint effusion of the left knee. X-ray did show osteoarthritis in both knees, however more pronouced OA in the left knee when compared to the right. -Pain management -ambulation with assistance #hypomagnesia: Patient had a Magnesium of 1.2 when she first presented to the ED. This also may be related to her poor oral intake, and could have contributed to some muscle weakness. She since has recieved 1 gram of Mag in the ED before admission. Subsequently her magnesium has risen to 1.5 just outside the lower limit of the normal range. -continue to monitor electrolytes -encourage oral intake -replace electrolytes as needed #small pulmonary nodules: CT of the chest when first presented to the ED showed evidence of small pulmonary nodules bilaterally. Radiology recommends follow up according to the [place] guidelines. #chronic medical conditions: -hold antihypertension medication -continue to monitor blood glucose -continue diabetes treatment -continue all other medications as prescribed DVT ppx: SQ heparin Diabetes diet Full code
[2018-02-25 14:00] VITALS: BP 102/50
[2018-02-25 18:00] VITALS: BP 118/84
[2018-02-25 23:24] VITALS: BP 132/70
[2018-02-26 06:42] VITALS: BP 150/76
--- NOTE | 2018-02-26 07:28 | PN- Housestaff ---
Stanley LELSIE,Shirley 02/26/18 0728: Subjective Follow-up For: Syncope MARIA TERESA Type II OH Vertigo Tele-Events Since Last Visit: NSR to ST HR: 90-105 Subjective: Patient was seen and examined today. Patient report increased knee pain (greater on the left). Patient denies fever, chills, n/v/c/d, dysuria. Reports increased frequency and incontinence which started recently prior to coming to the hospital. Continues to feel lightheaded and dizzy. Overnight patient was found to be confused and hallucinating. Patient was started on ceftriaxone to cover for UTI. Review of Systems Constitutional: Reports: see HPI. Objective Last 24 Hrs of Vital Signs/I&O Vital Signs Date Time Temp Pulse Resp B/P B/P Pulse O2 O2 Flow FiO2 Mean Ox Delivery Rate 02/27 0742 74 104/62 02/27 0647 98.6 74 18 104/62 93 Room Air 02/26 2342 97.8 02/26 2243 99.6 97 18 128/64 94 Room Air 02/26 2136 102 128/64 02/26 1600 Room Air 02/26 1506 Room Air Room Air 02/26 1500 98.3 89 20 126/60 93 Intake & Output 02/27 1600 02/27 0800 02/27 0000 Intake Total 220 220 Output Total 600 50 Balance -380 170 Intake, Oral 220 220 Output, Urine 600 50 Patient 130 lb Weight Weight Bed scale Measurement Method Physical Exam General Appearance: Alert, Cooperative, No Acute Distress Other Physical Findings: Skin Temp/Moisture Exam: Warm/Dry HEENT: Atraumatic, PERRLA, EOMI, Mucous Membr. 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 Patient is currently being managed on the telemetry floor for the followin. Syncope It is unclear what the patient's syncope is from. It may be multifactorial. Patient has been evaluated by cardiology outpatient. Has a linq recorder which was placed in 2017 due to previous episodes of presyncope. Patient also has had a poor appetite over the past several weeks with borderline hypotension today in thes 90s/40s. Patient has been evaluated by a neurologist and was diagnosed with vertigo which has also been attributed to her syncopal episodes. LINQ interrogated with no arrhythmias which may have precipitated this episode. - cardiology consulted. appreciate recommendations - continue telemetry monitoring - hold antihypertensives in setting of hypotension - IV fluid hydration - obtain records from neurologist - MRI Brain - PT evaulation for vertigo 2. MARIA TERESA - resolved Likely prerenal azotemia secondary to poor oral intake. - IV fluid hydration - continue to monitor I/O and BUN/Cr - avoid nephrotoxic agents 3. Type II [place] Elevated troponin peaked to 0.36 and downtrended to 0.25. Likely supply demand mismatch in setting of hypotension and MARIA TERESA however need to rule out cardiac etiology. - cardiology consulted. appreciate recommendations - ECHO pending 4. Electrolytes- hypomagnesemia - repleted magnesium - continue to monitor and replete as needed 5. UTI Patient overnight was hallucinating. Patient presented with urinary frequency and incontinence prior to admission which she reports is new for her. Urinalysis +leuk esterase. Patient had a mildly elevated temp of 100.1. Overnight she was started on ceftriaxone. - continue IV Ceftriaxone - follow up urine cultures Chronic conditions: - continue atorvastatin, aspirin, allopurinol - hold oral hypoglycemic agents - accuchecks TID/qHS with novolog SS - hold metoprolol in setting of hypotension DVT PPx: SQ Heparin Diet: Diabetic diet Code: Full code Problem List: 1. Syncope 2. Vertigo 3. MARIA TERESA (acute kidney injury) Pain Ratin Pain Location: knee Pain Goal: Pain 7 or less Pain Plan: tylenol tramadol lidocaine patch Tomorrow's Labs & Rationales: Rafael Lane MD 02/26/18 1119: Attending MD Review Statement Attending Statement Attending MD Statement: examined this patient, discuss w/resident/PA/GLAZE WIPER, agreed w/resident/PA/GLAZE WIPER, reviewed EMR data (avail) Attending Assessment/Plan: 82F PMH DM2, TIA, HTN, HL, Guillain Floyd syndrome, h/o shingles with chronic vertigo admitted for syncopal episode, down for >12 hours, with labs showing elevated troponin, low magnesium, with normal EKG. Improved today. No longer hypotensive, creatinine improved. 1. Syncope and collapse 2. Type 2 myocardial infarction 3. MARIA TREESA 4. Vertigo 5. Hypomagnesemia Plan - Continue on telemetry - Will obtain MRI head - Neurology records - IV hydration - Monitor renal function - PT evaluation for possible inpatient vestibular rehabilitation - Follow cardiology recommendations - Continue home medications - DVT PPx
[2018-02-26 08:19] LABS: ABSOLUTE BASOPHIL COUNT 0 /CUMM (0.0-0.2); ABSOLUTE EOSINOPHIL COUNT 0.1 /CUMM (0.0-0.7); ABSOLUTE GRANULOCYTE CT 7.2 /CUMM (1.4-6.5); ABSOLUTE LYMPH COUNT 1.3 /CUMM (1.2-3.4); ABSOLUTE MONOCYTE COUNT 1.1 /CUMM (0.10-0.60); BASOPHIL % 0.3 % (0.0-2.0); EOSINOPHIL % 0.8 % (0-5); GRANULOCYTE % 74.9 % (42.2-75.2); MEAN CORPUSCULAR HGB 27.5 PG (27.0-31.0); MEAN CORPUSCULAR HGB CONC 33.7 G/DL (33.0-37.0); MEAN CORPUSCULAR VOLUME 81.7 FL (81.0-99.0); MEAN PLATELET VOLUME 8.3 FL (7.4-10.4); PLATELET COUNT 212 /CUMM (130-400); RBC DISTRIBUTION WIDTH 15.2 % (11.5-14.5); RED BLOOD CELL CT 3.92 /CUMM (4.20-5.40); WHITE BLOOD CELL COUNT 9.7 /CUMM (4.8-10.8)
--- NOTE | 2018-02-26 11:45 | PN- Student ---
Subjective Subjective: Patient had confusion yesterday evening, she states this morning that she did not recall the event. She reports having continued left knee pain and dizziness accompanied by nasusea. She does not report any episodes of vomiting. She denies any chest pain, palpitations, abdominal pain, or trouble breathing. She does not report having any dysuria, however she has increased urge and incontenence. Records were obtained from her neurologist's office, with the last visit record being 11/2015. However the pateint reports a visit in January this year, Dr. Dickerson spoke to the team this morning on the phone regarding this last visit. Objective Objective: Current Medications Sig/Kvng Start time Last Medication Dose Route Stop Time Status Admin Acetaminophen 1,000 MG Q6P PRN 02/26 1000 AC N/A 1 UNIT IV Acetaminophen 500 MG Q6P PRN 02/24 2115 DC PO Allopurinol 100 MG DAILY 02/24 1828 AC 02/26 PO 0849 Aspirin 81 MG DAILY 02/24 1828 AC 02/26 PO 0849 Atorvastatin Calcium 10 MG 1700 02/24 1830 AC 02/25 PO 1759 Ceftriaxone Sodium 1,000 MG Q24H 02/25 2200 AC 02/25 IV 2157 Heparin Sodium 5,000 UNIT Q8 02/24 220 AC 02/26 (Porcine) SC 0610 Insulin Aspart 0 TIDAC 02/25 0800 AC 02/26 SC 0849 Lidocaine 2 PAT DAILY NEEDED PRN 02/26 1015 AC TOP Magnesium Oxide 400 MG BID 02/26 0902 AC 02/26 PO 0939 Metoprolol Tartrate 25 MG BID 02/26 0900 AC 02/26 PO 0939 Metoprolol Tartrate 25 MG BID 02/24 2100 DC 02/24 PO 2140 Sodium Chloride 1,000 ML Q13H 02/25 0830 DC 02/25 IV 02/26 2327 0847 Tramadol HCl 50 MG Q6P PRN 02/24 2130 AC 02/26 PO 0643 Laboratory Tests 02/26 02/26 0630 0600 Chemistry Sodium (137 - 145 mmol/L) 133 L Potassium (3.5 - 5.1 mmol/L) 4.2 Chloride (98 - 107 mmol/L) 98 Carbon Dioxide (22 - 30 mmol/L) 20 L Anion Gap (5 - 16) 15 BUN (7 - 17 mg/dL) 36 H Creatinine (0.5 - 1.0 mg/dL) 1.0 Estimated GFR (>60 ml/min) 53 L BUN/Creatinine Ratio (7 - 25 %) 36.0 H Hemoglobin A1c (4.2 - 5.8 %) 8.6 H Magnesium (1.6 - 2.3 mg/dL) 1.5 L Hematology CBC w Diff NO MAN DIFF REQ WBC (4.8 - 10.8 /CUMM) 9.7 RBC (4.20 - 5.40 /CUMM) 3.92 L Hgb (12.0 - 16.0 G/DL) 10.8 L Hct (37 - 47 %) 32.0 L MCV (81.0 - 99.0 FL) 81.7 MCH (27.0 - 31.0 PG) 27.5 MCHC (33.0 - 37.0 G/DL) 33.7 RDW (11.5 - 14.5 %) 15.2 H Plt Count (130 - 400 /CUMM) 212 MPV (7.4 - 10.4 FL) 8.3 Gran % (42.2 - 75.2 %) 74.9 Lymphocytes % (20.5 - 51.1 %) 13.1 L Monocytes % (1.7 - 9.3 %) 10.9 H Eosinophils % (0 - 5 %) 0.8 Basophils % (0.0 - 2.0 %) 0.3 Absolute Granulocytes (1.4 - 6.5 /CUMM) 7.2 H Absolute Lymphocytes (1.2 - 3.4 /CUMM) 1.3 Absolute Monocytes (0.10 - 0.60 /CUMM) 1.1 H Absolute Eosinophils (0.0 - 0.7 /CUMM) 0.1 Absolute Basophils (0.0 - 0.2 /CUMM) 0 Microbiology Date/Time Procedure - Status Source Growth 02/25 1446 Urine Culture - RECD URINE ROUT Vital Signs Date Time Temp Pulse Resp B/P B/P Pulse O2 O2 Flow FiO2 Mean Ox Delivery Rate 02/26 0939 102 150/76 02/26 0642 98.6 102 20 150/76 93 Room Air 02/25 2324 98.5 97 18 132/70 92 Room Air 02/25 1800 98.4 130 18 118/84 93 02/25 1400 98.0 92 20 102/50 97 Intake & Output 02/26 1600 02/26 0800 02/26 0000 Intake Total 720 420 Output Total Balance 720 420 Intake, IV 600 300 Intake, Oral 120 120 Patient 159 lb Weight Weight Bed scale Measurement Method Physical Exam General Apperance: no evidence of acute distress, AOX3 CV: diminished S1&S2, regular rhythm and rate, no MRG Pulm: lungs clear to ausculatation in posterior lung garcia, no rubs, rhonchi, rales or wheezes Ext: Knees swollen bilaterally, slightly more swollen on the left, tender to palpation on the left knee Assessment/Plan Assessment: Ms. 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 Ms. Peterson states that in the early evening on Saturday she felt lightheaded and syncopized, falling to the floor injuring her left knee. She woke up the following morning in the same location she fell the previous night in pain and feeling lethargic. She then spent Saturday resting in a chair in her house, sleeping most of the day. She then presented to the ED on Saturday, as she continued to feel lightheaded and growing concern about her syncopal episode. She was subsequently admitted to the telemetry unit with a positive troponin and apparent MARIA TERESA on laboratory work up. She was hospitalized for a similar event of syncope approximately 9 months ago. Following that visit she had a linq system in place which has been interogated by cardiology. She continues to feel lightheaded and dizzy. Records were obtained from her neurologists office after Ms. Peterson provided release consent yesterday. Plan: Problem list: 1. Syncope 2. Elevated troponin 3. MARIA TERESA 4. Left knee pain 5. Acid Reflux 6. Delerium 7. Chronic medical conditions #Syncope: Hx of syncopal episode in the past requiring hospitalization 05/2017. Her cardiac work-up at that time consisted of a persantine stress test that was normal and a linq monitor was placed. Neurology did not recommend any intervention or specific recommendations. Ms. Peterson reports having a similar event of syncope this past Saturday02/22/18. She has been seen by cardiology, Dr. Kaur interrogated the linq monitor and does not think this event was precipitated by an arrhythmia or heart block. Her neurologist Dr. Dickerson was contacted and records were recieved as well as discussing the case via phone. He had suggested involving in house neurology as a consult and obtaining an MRI ( will confirm with radiology regarding linq implant). 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 She was seen by PT today which found Waldron-Hallpike manuever to be positive on the right side only and used hermelinda manuever as treatment. 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 She also has been hypotensive over the course of her hospitalization, however orthostatic vitals were negative. Her hypotension may be explained by poor oral intake as her blood pressure has improved with IV fluids. She still continues to have dizziness with some nausea, however due to QTC and anticholinergic properties Zofran and meclizine were not initiated. Last on the differential as the patient has been taking a beta eduardo, and does not check her blood glucose at home it was thought she may have been expereincing frequent hypoglycemic events eliciting syncope. However, she has had a slightly elevated blood glucose throughout her hospitalization in addition to having an elevated HbA1C of 8.6% making this extremely unlikely. -MRI of the brain -continue cardiac monitoring -continue with PT as tolerated -neurology consult -avoid anticholinergics -encourage oral intake #Elevated troponin: Patient presented to the hospital and found to have elevated troponin of 0.36, this has subsequently downtrended with the most recent being 0.25 on 02/25/18. EKG at the time of admission showed LBBB, which has been present on previous outpatient cardiology EKGs. Ms. Peterson was evaluated by Dr. 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 He suspects intravascular depletion, as she has had poor oral intake is the contributing factor. This is supported after he investigated LINQ montioring device, which did not reveal evidence of heart block or arrythmia. -appreciate cardiology recommendations -continue cardiac monitoring -continue to monitor and replenish electrolytes -encourage oral intake #MARIA TERESA: Ms. Peterson was found to have elevated BUN and Cr on lab studies when admited to the hospital. Due to poor oral intake as a result of difficulty swallowing, it is likely this was the contributing factor to her kidney injury. She also has a history of Diabetes, however given the urine sample it does not appear to be a nephrotic type picture. Rather this is likely hypovolemic type state causing a prerenal MARIA TERESA. Her creatinine has improved today after recieving 2L of NaCl 0.9% IV fluid hydration. -Discontinue IV fluids -encourage oral hydration -continue to follow CMP -follow I&O's -avoid nephrotoxins #Left knee pain: Ms. Peterson fell and injured her left knee on Saturday when she had a syncopal episode. Her left knee has appeared more swollen when compared to the right knee, however there was no evidence of ecchymosis or deformity. Xrays were performed on both knees at the time of presentation to the ED on 02/24/18 and did not reveal an acute fracture. However, effusion of the joint was present on the left side with evidence of OA present bilaterally, being more pronounced in the left knee. She also has a history of Gout, for which she takes Allopurinol daily. Due to poor oral intake, and timing of the knee pain it is unlikely that this is a gouty flair up. PT did evaluate her today and the left lower extremity ROM is restricted due to pain, and restricted her PT session today. Patient reported to nurse that she has taken lidocaine patches in the past for similar pain, however when inquiry was placed to her pharmacy there was no previous Rx for these patches and likely was getting it OTC, which is available as 4% patches as per pharmacy. -continue PT -weight bearing as tolerated -due to MARIA TERESA avoid ibuprofen -avoid narcotics due to confusion -consider lidocaine patches for pain management -Tramadol 50 mg Q6 PRN PO #Acid Reflux: Patient reports having episodes of burining sensation in her throat after eating as well as the felling of food getting stuck in her throat. She states that these symptoms have been going on for 2-3 wks prior to presenting to the ED on 02/24/18. In addition she reports that these symptoms are relieved by Tums antacid tablets. After further discussion it was revealed she takes all of her pills at once in the morning. Techniques to reduce acid reflux were discussed with the patient. She also reported difficulty swallowing, which may be a result of residual weakness from facial shingles she experienced in 2001. -swallow eval -consider ppi -take oral medications one at a time and sit up right for at least 30 min post oral intake -consider endoscopy #Delerium: Patient had an episode of acute confusion last night per sign out this am. Given the patient's age she is at increased risk for delerium and anticholinergics should be avoided. Her urinalysis indicated possible UTI, although she has not had symptoms of dysuria. However she does report increased urge and frequency, in addition to episodes of urinary incontenence. Urine culture is still pending, however due to last night's events she started on IV abx. This morning she was AOx3 and did not recall the event from last night. -avoid anticholinergics -continue IV Abx -follow urine culture #hypomagnesia: Patient had a Magnesium of 1.2 when she first presented to the ED. This also may be related to her poor oral intake, and could have contributed to some muscle weakness. She since has recieved 1 gram of Mag in the ED before admission. Subsequently her magnesium has risen to 1.5 just outside the lower limit of the normal range. -continue to monitor electrolytes -encourage oral intake -replace electrolytes as needed #Chronic medical conditions -continue to monitor blood glucose -continue diabetes treatment -continue all other medications as prescribed DVT ppx: SQ heparin Diabetes diet Full code
--- NOTE | 2018-02-26 12:13 | PN- Cardiology ---
Subjective Subjective: Feels improved. No dysrhythmias or heart block observed on telemetry. Objective Vital Signs and I&Os Vital Signs Date Time Temp Pulse Resp B/P B/P Pulse O2 O2 Flow FiO2 Mean Ox Delivery Rate 02/26 0939 102 150/76 02/26 0642 98.6 102 20 150/76 93 Room Air 02/25 2324 98.5 97 18 132/70 92 Room Air 02/25 1800 98.4 130 18 118/84 93 02/25 1400 98.0 92 20 102/50 97 Intake & Output 02/26 1600 02/26 0800 02/26 0000 02/25 1600 02/25 0800 02/25 0000 Intake Total 200 385 314 9519 150 400 Output Total 150 250 250 325 Balance 50 852 629 1641 -100 75 Intake, IV 600 300 450 Intake, Oral 200 249 795 0695 150 400 Output, Urine 150 250 250 325 Patient 159 lb 150 lb Weight Weight Bed scale Measurement Method Physical Exam: Well-developed, well-nourished elderly female in no acute distress. Vital signs: See above. HEENT: Normocephalic, atraumatic, EOMI, slightly dry mucous membranes. Neck: No JVD, no bruits. Lungs: Clear to auscultation bilaterally. Heart: S1, S2 with grade 1-2/6 systolic murmur. No gallop or rub. Abdomen: Soft, nontender, positive bowel sounds. Extremities: No edema. Current Medications: Current Medications Sig/Kvng Start time Last Medication Dose Route Stop Time Status Admin Acetaminophen 1,000 MG Q6P PRN 02/26 1000 AC N/A 1 UNIT IV Acetaminophen 500 MG Q6P PRN 02/24 2115 DC PO Allopurinol 100 MG DAILY 02/25 1828 AC 02/26 PO 0849 Aspirin 81 MG DAILY 02/25 1828 AC 02/26 PO 0849 Atorvastatin Calcium 10 MG 1700 02/24 1830 AC 02/25 PO 1759 Ceftriaxone Sodium 1,000 MG Q24H 02/25 2200 AC 02/25 IV 2157 Heparin Sodium 5,000 UNIT Q8 02/24 2200 AC 02/26 (Porcine) SC 0610 Insulin Aspart 0 TIDAC 02/25 0800 AC 02/26 SC 1138 Lidocaine 2 PAT DAILY NEEDED PRN 02/26 1015 AC 02/26 TOP 1138 Magnesium Oxide 400 MG BID 02/26 0902 AC 02/26 PO 0939 Metoprolol Tartrate 25 MG BID 02/26 0900 AC 02/26 PO 0939 Metoprolol Tartrate 25 MG BID 02/24 2100 DC 02/24 PO 2140 Sodium Chloride 1,000 ML Q13H 02/25 0830 DC 02/25 IV 02/26 2327 0847 Tramadol HCl 50 MG Q6P PRN 02/24 2130 02/26 PO 0643 Results Last 48 Hrs of Labs/Mics: Laboratory Tests 02/26/18 0630: Anion Gap 15, Estimated GFR 53 L, BUN/Creatinine Ratio 36.0 H, Magnesium 1.5 L, CBC w Diff NO MAN DIFF REQ, RBC 3.92 L, MCV 81.7, MCH 27.5, MCHC 33.7, RDW 15.2 H, MPV 8.3, Gran % 74.9, Lymphocytes % 13.1 L, Monocytes % 10.9 H, Eosinophils % 0.8, Basophils % 0.3, Absolute Granulocytes 7.2 H, Absolute Lymphocytes 1.3, Absolute Monocytes 1.1 H, Absolute Eosinophils 0.1, Absolute Basophils 0 02/26/18 0600: Hemoglobin A1c 8.6 H 02/25/18 0612: Anion Gap 16, Estimated GFR 31 L, BUN/Creatinine Ratio 23.1, Hemoglobin A1c 8.5 H, Magnesium 1.5 L, Creatine Kinase 31, CBC w Diff NO MAN DIFF REQ, RBC 4.27, MCV 82.4, MCH 27.4, MCHC 33.2, RDW 14.8 H, MPV 7.8, Gran % 74.0, Lymphocytes % 14.4 L, Monocytes % 10.8 H, Eosinophils % 0.5, Basophils % 0.3, Absolute Granulocytes 7.5 H, Absolute Lymphocytes 1.5, Absolute Monocytes 1.1 H, Absolute Eosinophils 0.1, Absolute Basophils 0 02/25/18 0200: Troponin I 0.25 *H 02/24/182135: Urinalysis LIGHT H, Urine Color YEL, Urine Clarity HAZY H, Urine pH 6.0, Ur Specific [place] 1.025, Urine Protein 30 H, Urine Ketones NEG, Urine Nitrite NEG, Urine Bilirubin NEG@ICTO, Urine Urobilinogen 0.2, Ur Leukocyte Esterase SMALL H, Ur Microscopic SEDIMENT EXAMINED, Urine RBC 1-3, Urine WBC 15-25 H, Ur Epithelial Cells FEW, Urine Bacteria MANY H, Urine Hemoglobin TRACE-INTACT, Urine Glucose NEG 02/24/18 1655: Troponin I 0.29 *H 02/24/18 1251: Anion Gap 14, Estimated GFR 43 L, BUN/Creatinine Ratio 25.0, Glucose 234 H, Calcium 9.4, Magnesium 1.2 L, Total Bilirubin 1.0, AST 21, ALT 17, Alkaline Phosphatase 61, Creatine Kinase 42, Troponin I 0.36 *H, Total Protein 7.7, Albumin 4.2, Globulin 3.5, Albumin/Globulin Ratio 1.2, TSH 1.380, Free T4 0.97, CBC w Diff NO MAN DIFF REQ, RBC 4.73, MCV 82.4, MCH 27.6, MCHC 33.5, RDW 15.0 H , MPV 7.5, Gran % 72.6, Lymphocytes % 17.6 L, Monocytes % 9.4 H, Eosinophils % 0.1, Basophils % 0.3, Absolute Granulocytes 7.1 H, Absolute Lymphocytes 1.7, Absolute Monocytes 0.9 H, Absolute Eosinophils 0, Absolute Basophils 0 Assessment/Plan Assessment/Plan Assessment/Plan [id number] w/ hx fmr tob use, pul nodules, breast ca s/p surgery/radiation/ tamoxifen, ovarian ca, Guillian Portillo syndrome, calcified meningioma, facial shingles & subsequent ch vertigo w/ suspected Saul Stubbs syndrome, gait disorder, previous TIA, mild carotid dz, HTN, HLD, DM, LBBB, NSVT, mild , LVH, & previous presyncope/syncope w/placement of a [employer] LINQ (07/11/2017) who presented following an unwitnessed syncopal episode at home, but also had UTI symptoms w/ decreased p.o. intake, antihypertensive medications, etc. with low- grade temperature, MARIA TERESA, as well as, hypomagnesemia and a modest troponin I elevation. Multiple etiologies were initially felt possible for Mrs. Peterson's presentation , however, the [employer] LINQ Recorder did not reveal any evidence of heart block or dysrhythmias at the time of her syncopal episode. Suspect intravascular depletion was responsible for her presentation. Suspect that her modest troponin I elevation is on the basis of a type II AR and not an ACS, tachycardia, LVH, etc. Recommendations: * Continue on telemetry. * Continue to gingerly hydrate. * Replete magnesium. * DVT prophylaxis. Continue telemetry? Yes
--- NOTE | 2018-02-26 14:05 | Discharge Summary ---
Visit Information Visit Dates Admission Date: 02/24/18 Discharge Date: 02/27/18 Hospital Course Course Attending Physician: Rafael Metcalf MD Primary Care Physician: Dilma Erickson MD Hospital Course: 82 year old woman former tobacco use with PMH of DM, h/o TIA, HTN, hyperlipidemia, Suzi Portillo syndrome s/p IVIG, breast carcinoma s/p radiation/ tamoxifen, ovarian carcinoma, Varicella [place] in 2006 complicated by Cook- Stubbs syndrome, chronic vertigo, chronic gait imbalance, left bundle branch block , nonsustained ventricular tachycardia, mild aortic stenosis, left ventricular hypertrophy, multiple recurrent syncope admitted to [facility] 02/24/18 for evaluation of syncope. Vitals on admission: T 97.6, HR 112, BP 123/67, 93% on RA Labs significant for WBC 9.7, hemoglobin 13.1, hematocrit 39.0, sodium 135, potassium 4.4, bicarb 23, anion gap 16, BUN 37, creatinine 1.2, hemoglobin A1c 8.6, magnesium 1.5 UA significant for haziness, small leukocyte esterase Imaging: No Acute intracranial process seen. Calcified left frontal lobe meningioma is stable. Mild cerebral atrophy and chronic small vessel ischemic changes in both cerebral hemispheres appears stable. No acute fracture or dislocation in cervical spine. Degenerative disc changes C5 -C6 and C6-C7 disc levels. There is posterior spondylosis throughout cervical spine. She was admitted to the telemetry floor the following issues were addressed: Syncope Multiple etiologies, UTI symptoms with decreased p.o. intake, antihypertensive medications, were initially felt possible for Mrs. Peterson's presentation. She was orthostat negative for us. Normal TFT. she was also noted to by hypomagnesemic during her stay and she will be discharged on PO supplements. This will need to be followed up as outpatiement. [employer] Recorder did not reveal any evidence of heart block or dysrhythmias at the time of her syncopal episode. No telemetry events noted during her hospital course. MRI head done showed No acute infarct, high left frontal convexity calcified meningioma. Moderate diffuse parenchymal volume loss and chronicwhite matter microangiopathy. Intravascular depletion was thought to be responsible for her presentation. Her antihypertensives were held upon admisson secondary to hypotension. Her metoprolol was restarted two days prior to discharge and her Diovan was held upon discharge. MARIA TERESA Likely prerenal azotemia secondary to poor oral intake. Improved with IV fluid hydration. Nephrotoxic agents were avoided. Type II MS Elevated troponin peaked to 0.36 and downtrended to 0.25. Echo Normal size left ventricle. Mild concentric left ventricular hypertrophy. Normal left ventricular ejection fraction visually estimated at 65%. Stage 1 diastolic dysfunction . Increased resting left ventricular outflow tract velocity 2.0 m/s Normal right ventricular size and function. Continued on atorvastatin, aspirin UTI As she presented with urinary frequency and urge incontinence with delirium decision was made to treat her with three days of IV ceftriaxone. UC grew Ecoli. Diabetes Mellitus We held her oral hypoglycemic agents and her fingersticks were controlled on ISS. Hemoglobin A1c was noted to be 8.6. Gout: Continued on Allopurinol. On day of discharge she complained of left ankle which was noted to be tender and more swollen. Xray of left ankle revealed no fracture. Possible initial stage of acute flare up. If it worsens she will benefit from a course of colchicine. Unfortunately she will need to be cautious with NSAIDS due to GI bleed in the past. Pain control: Her Left knee was a source of pain and was given tramadol 50mg q6 with IV tylenol and 5% lidocaine patches. DVT PPx: SQ Heparin Diet: Diabetic diet Code: Full code Of NOTE imaging of : lungs: showed small perihilar nodule right lower lobe, axial image 30, series 3 , tumor nodule left lower lobe axial image 29, series 3, 4 minute nodule left lower lobe costophrenic sulcus image 275, series 5. Mediastinum: There is a small fibrin nodule right thyroid lobe which appears enlarged. This will need to be follow up as outpatient. Complications: None Allergies: Coded Allergies: No Known Allergies (05/31/17) Significant Procedures: SERVICE DATE: 02/26/18- EXAM TYPE: MRI - MRI-HEAD W/O PRISCILLA FINDINGS: A heavily calcified 1.5 cm left frontal meningioma is partially visualized. No acute ischemic changes are visible on the diffusion acquisition. There is generalized parenchymal volume loss with mild to moderate chronic white matter microangiopathic changes. No hydrocephalus is seen. There is no midline shift of structures. The craniovertebral junction appears normal. IMPRESSION: Limited incomplete study. No acute infarct. High left frontal convexity calcified meningioma. Moderate diffuse parenchymal volume loss and chronic white matter microangiopathy. SERVICE DATE: 05/ EXAM TYPE: CARD - ECHOCARDIOGRAM FINDINGS Left Ventricle Normal size left ventricle. Mild concentric left ventricular hypertrophy. No obvious regional wall motion abnormalities. Normal left ventricular ejection fraction visually estimated at 65%. Abnormal relaxation filling pattern of the left ventricle for age (stage 1 diastolic dysfunction). Increased resting left ventricular outflow tract velocity (2.0 m/s). Right Ventricle Normal right ventricular size and function. Right Atrium Normal right atrial size. Left Atrium Normal left atrial size. Mitral Valve Moderate mitral annular calcification. Mitral valve thickened. Mild mitral regurgitation. Aortic Valve Diffuse thickening of the aortic valve cusps with reduced excursion. Mild aortic stenosis. No aortic regurgitation. Tricuspid Valve Structurally normal tricuspid valve. Trace tricuspid regurgitation. Mild pulmonary hypertension. Right ventricular systolic pressure estimated to be elevated at 38 mmHg. Pulmonic Valve Pulmonic valve not well visualized, grossly normal. No pulmonic regurgitation. Pericardium No pericardial effusion. Great Vessels Normal size aortic root. CONCLUSIONS Normal size left ventricle. Mild concentric left ventricular hypertrophy. Normal left ventricular ejection fraction visually estimated at 65%. Abnormal relaxation filling pattern of the left ventricle for age (stage 1 diastolic dysfunction). Increased resting left ventricular outflow tract velocity (2.0 m/s). Normal right ventricular size and function. Normal atrial size. Mild mitral regurgitation. Mild aortic stenosis. Trace tricuspid regurgitation. Mild pulmonary hypertension. SERVICE DATE: 02/24/18 EXAM TYPE: CAT - CT CERV SPINE WO IV CONTRAST; CT HEAD WO IV CONTRAST FINDINGS: BRAIN: There is no acute intra-axial, extra-axial bleed or midline shift. There is extra-axial calcified left frontal meningioma adjacent cortical compression but no vasogenic edema seen. There is no acute infarct in evolution. The lateral ventricles are enlarged and so other cortical sulci. There is diffuse periventricular hypodensity suggestive of chronic small vessel ischemic changes. Bone windows reveal no calvarial abnormality. The paranasal sinuses and bilateral mastoid air cells are well-aerated. CERVICAL SPINE: Sagittal reconstructed images there is mild straightening of cervical lordosis. The vertebral heights and alignment appears normal. Loss of C5-C6 and C6-C7 disc heights with mild posterior spondylosis at C3-C4 through C6-C7 disc levels is noted. The neural foramina are widely patent. There is bilateral C2-C3, C3-C4, C4-C5 facet joint arthropathy noted. There is a moderate-sized hypodense lesion right thyroid lobe with mild right thyroid lobe enlargement. The prevertebral and paravertebral soft tissues are normal. IMPRESSION: Acute intracranial process seen. Calcified left frontal lobe meningioma is stable. Mild cerebral atrophy and chronic small vessel ischemic changes in both cerebral hemispheres appears stable. No acute fracture or dislocation in cervical spine. Degenerative disc changes C5-C6 and C6-C7 disc levels. There is posterior spondylosis throughout cervical spine. SERVICE DATE: 02/24/18 EXAM TYPE: RAD - XRY-KNEE COMPLETE LEFT; XRY-KNEE COMPLETE RIGHT FINDINGS: RIGHT KNEE: Chondrocalcinosis is present in the medial and lateral compartments. Bones are osteopenic. Osteoarthritis in the medial and patellofemoral compartments is characterized by joint space narrowing, articular surface irregularity, and marginal osteophytes. More mild osteoarthritis is present in the lateral compartment. No joint effusion. Calcific atherosclerosis is present in the runoff arteries. LEFT KNEE: No fracture or malalignment. Bones are osteopenic. There is moderate to severe medial compartment osteoarthritis with marked joint space narrowing, small marginal osteophytes, subchondral sclerosis, and vacuum phenomenon. More mild to moderate osteoarthritis present in the lateral and patellofemoral compartments. There is marked chondrocalcinosis. Trace joint effusion. Calcific atherosclerosis is present in the popliteal and runoff arteries. IMPRESSION: 1. No acute fracture or malalignment. 2. 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 3. Trace left knee joint effusion. 4. Marked chondrocalcinosis SERVICE DATE: 02/24/18 EXAM TYPE: CAT - CT ABD & PELVIS W/O IV CONTRAS; CT CHEST WO IV CONTRAST FINDINGS CHEST: LUNGS: Both lungs are well-expanded and clear of acute pneumonic consolidation. No mass, consolidation seen. There is small perihilar nodule right lower lobe, axial image 30, series 3, tumor nodule left lower lobe axial image 29, series 3, 4 minute nodule left lower lobe costophrenic sulcus image 275, series 5. Mediastinum: There is a small fibrin nodule right thyroid lobe which appears enlarged. The left thyroid lobe appears unremarkable. The central trachea and bronchi appear widely patent. The coronary artery calcifications present. No pericardial effusion seen. Atherosclerotic calcification of thoracic aorta is noted. A small hiatal hernia is present. Pleura: There is no pleural thickening, effusion or calcified pleural plaques. Axilla: There are surgical stas in left breast and left axilla. No abnormal size lymph nodes or mass seen in the axilla. The chest wall otherwise appears unremarkable. ABDOMEN AND PELVIS: LIVER, GALLBLADDER, AND BILIARY TREE: The liver is normal in size, shape, and attenuation. No focal hepatic lesion or biliary ductal dilatation is present. There is a faint radiopaque 5 mm gallstone without wall thickening of pericholecystic fluid collection. PANCREAS: Unremarkable. SPLEEN: Unremarkable. ADRENAL GLANDS: Unremarkable. KIDNEYS AND URETERS: The kidneys are normal in size, shape, and attenuation. No hydronephrosis, hydroureter, or calculi seen. No perinephric stranding. BLADDER: Unremarkable. GASTROINTESTINAL TRACT: There is diffuse colonic diverticulosis without diverticulitis. There is no colonic or small bowel distention. No free air or free fluid. ABDOMINAL WALL: No significant hernia is appreciated. LYMPH NODES: Normal. VASCULAR: There is atherosclerotic calcification of the entire abdominal aorta without aneurysmal dilatation. Largest segment of abdominal aorta measures 2.4 x 2.4 cm in midabdomen. Mild dilation of the right common iliac arteries noted measuring 1.6 cm axial image 80, series 2. PELVIC VISCERA: There are calcified nodules in left axilla and several stas in the pelvis from previous intervention. The uterus is likely surgically absent or nonvisualized. The bladder is nondistended. Moderate stool and gas is seen in the colon OSSEOUS STRUCTURES: There are degenerative disc changes mid thoracic spine, L5-S1, L4-L5, L3-L4 disc levels. No lytic or sclerotic process seen. IMPRESSION: No acute process seen in the chest or abdomen. There is small bilateral pulmonary nodules. Recommend follow-up as per Fleischner guidelines. No acute consolidation or abnormal mediastinal lymphadenopathy. There is previous left breast surgery and left axillary dissection. There is a postsurgical changes in the pelvis and dense left adnexal calcification. Likely patient has undergone total hysterectomy. Diffuse colonic diverticulosis without diverticulitis. The appendix is normal. Atherosclerotic dilation of right common iliac artery and atherosclerotic changes throughout the abdominal aorta. 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 repeat BEP in one week. Medications at Discharge Discharge Medications: Stop taking the following medications: Valsartan/Hydrochlorothiazide (Valsartan-Hctz 160-12.5 MG Tab) 160 MG-12.5 MG TABLET ORAL DAILY Qty = 90 Continue taking these medications: Metformin HCl (Metformin HCl) 500 MG TABLET 1 Tablet ORAL DAILY Qty = 30 Comments: NOT GIVEN IN HOSPITAL Metoprolol Tartrate (Metoprolol Tartrate) 50 MG TABLET 0.5 Tablet ORAL TWICE DAILY Qty = 180 Comments: Last Taken: 02/27/18 Time: 0742 Allopurinol (Allopurinol) 100 MG TABLET 1 Tablet ORAL DAILY Qty = 90 Comments: Last Taken: 02/27/18 Time: 0742 Simvastatin (Simvastatin*) 20 MG TABLET 1 Tablet ORAL Every night Qty = 30 Comments: Last Taken: 02/26/18 Time: 1734 LIPITOR GIVEN IN HOSPITAL Aspirin (Aspirin*) 81 MG TAB.CHEW 1 Tablet ORAL DAILY Qty = 90 Comments: Last Taken: 02/27/18 Time: 0742 Start taking the following new medications: Tramadol HCl (Tramadol HCl) 50 MG TABLET 50 Milligram ORAL TWICE DAILY as needed for Knee Pain Qty = 10 No Refills Comments: Last Taken: 02/27/18 Time: 06 Lidocaine (Lidoderm) 5 % ADH..PATCH 2 Patch On the skin DAILY NEEDED as needed for knee pain Qty = 30 No Refills Instructions: Please use only for 12 hours and then keep off for 12 hours. Use only when needed for pain. Comments: Last Taken: 02/27/18 Time: 0742 Magnesium Oxide (Magnesium Oxide) 400 MG TABLET 1 Milligram ORAL TWICE DAILY Qty = 30 No Refills Comments: Last Taken: 02/27/18 Time: 0742 Acetaminophen (Tylenol Extra Strength) 500 MG TABLET 1 Tablet ORAL Every 6-8 Hours as Needed as needed for Knee Pain Qty = 30 No Refills Comments: Last Taken: 02/27/18 Time: 0814 IV GIVEN Copies To: Eric Dickerson MD, MD,Dilma Ortiz Attending MD Review Statement Documenting Attending: Tea LESLIE,Rafael Metcalf MD,Rafael
[2018-02-26 15:00] VITALS: BP 126/60
--- NOTE | 2018-02-26 17:02 | MRI REPORT ---
EXAMINATION: INCOMPLETE AND LIMITED MR BRAIN WITHOUT CONTRAST CLINICAL INFORMATION: Dizziness. COMPARISON: Head CT from 02/24/2018. TECHNIQUE: Motion degraded diffusion, T2, and sagittal T1-weighted imaging obtained. The patient refused to continue the study. FINDINGS: A heavily calcified 1.5 cm left frontal meningioma is partially visualized. No acute ischemic changes are visible on the diffusion acquisition. There is generalized parenchymal volume loss with mild to moderate chronic white matter microangiopathic changes. No hydrocephalus is seen. There is no midline shift of structures. The craniovertebral junction appears normal. IMPRESSION: Limited incomplete study. No acute infarct. High left frontal convexity calcified meningioma. Moderate diffuse parenchymal volume loss and chronic white matter microangiopathy.
--- NOTE | 2018-02-26 18:10 | ECHOCARDIOGRAM REPORT ---
DILIP MCKINLEY Age: 82 : 1935 Gender: F Exam Date: 02/25/2018 18:32 Exam Location: [address] Ht (in): 63 Wt (lb): 148 BSA: 1.74 BP: 110 / 60 Ordering Physician: Julián Titus, Referring Physician: Dayday Kaur MD Technologist: Angi Noel [facility] Room Number: 185-01 Indications: PRESYNCOPE/SYNCOPE Rhythm: Sinus Technical Quality: Fair FINDINGS Left Ventricle Normal size left ventricle. Mild concentric left ventricular hypertrophy. No obvious regional wall motion abnormalities. Normal left ventricular ejection fraction visually estimated at 65%. Abnormal relaxation filling pattern of the left ventricle for age (stage 1 diastolic dysfunction). Increased resting left ventricular outflow tract velocity (2.0 m/s). Right Ventricle Normal right ventricular size and function. Right Atrium Normal right atrial size. Left Atrium Normal left atrial size. Mitral Valve Moderate mitral annular calcification. Mitral valve thickened. Mild mitral regurgitation. Aortic Valve Diffuse thickening of the aortic valve cusps with reduced excursion. Mild aortic stenosis. No aortic regurgitation. Tricuspid Valve Structurally normal tricuspid valve. Trace tricuspid regurgitation. Mild pulmonary hypertension. Right ventricular systolic pressure estimated to be elevated at 38 mmHg. Pulmonic Valve Pulmonic valve not well visualized, grossly normal. No pulmonic regurgitation. Pericardium No pericardial effusion. Great Vessels Normal size aortic root. CONCLUSIONS Normal size left ventricle. Mild concentric left ventricular hypertrophy. Normal left ventricular ejection fraction visually estimated at 65%. Abnormal relaxation filling pattern of the left ventricle for age (stage 1 diastolic dysfunction). Increased resting left ventricular outflow tract velocity (2.0 m/s). Normal right ventricular size and function. Normal atrial size. Mild mitral regurgitation. Mild aortic stenosis. Trace tricuspid regurgitation. Mild pulmonary hypertension. Dayday Kaur M.D. (Electronically Signed) Final Date: 26 Feb 2018 18:09 MEASUREMENTS (Male / Female) Normal Values 2D ECHO LV Diastolic Diameter PLAX 3.6 cm 4.2 - 5.9 / 3.9 - 5.3 cm LV Systolic Diameter PLAX 2.2 cm 2.1 - 4.0 cm LV Fractional Shortening PLAX 38.9 % 25 - 46 % LV Ejection Fraction 2D Teich 70.2 % IVS Diastolic Thickness 1.3 cm LVPW Diastolic Thickness 1.3 cm LV Relative Wall Thickness 0.7 RV Internal Dim ED PLAX 2.5 cm 1.9 - 3.8 cm LVOT Diameter 1.9 cm Aortic Root Diameter 2.7 cm LA Systolic Diameter LX 3.2 cm 3.0 - 4.0 / 2.7 - 3.8 cm Ascending Aorta Diameter 2.9 cm DOPPLER AV Peak Velocity 271.0 cm/s AV Peak Gradient 29.4 mmHg AV Mean Velocity 191.0 cm/s AV Mean Gradient 17.0 mmHg AV Velocity Time Integral 46.8 cm LVOT Peak Velocity 201.0 cm/s LVOT Peak Gradient 16.2 mmHg LVOT Mean Velocity 142.0 cm/s LVOT Mean Gradient 9.0 mmHg LVOT Velocity Time Integral 34.8 cm LVOT Stroke Volume 98.7 cm AV Area Cont Eq vti 2.1 cm AV Area Cont Eq pk 2.1 cm MV Peak Velocity 179.0 cm/s MV Peak Gradient 12.8 mmHg MV Mean Velocity 95.0 cm/s MV Mean Gradient 5.0 mmHg Mitral E Point Velocity 84.8 cm/s Mitral A Point Velocity 149.0 cm/s Mitral E to A Ratio 0.6 MV PHT Velocity 111.0 cm/s MV Deceleration [place] 283.0 cm/s MV Pressure Half Time 117.7 ms MV Area PHT 1.9 cm MV Deceleration Time 137.0 ms TR Peak Velocity 285.0 cm/s TR Peak Gradient 32.5 mmHg Right Atrial Pressure 5.0 mmHg Pulmonary Artery Systolic Pressu 37.5 mmHg Right Ventricular Systolic Press 37.5 mmHg PV Peak Velocity 145.0 cm/s PV Peak Gradient 8.4 mmHg PV Mean Velocity 81.7 cm/s PV Mean Gradient 3.0 mmHg PV Velocity Time Integral 24.6 cm LV E' Lateral Velocity 5.5 cm/s Mitral E to LV E' Lateral Ratio 15.5 LV E' Septal Velocity 6.4 cm/s Mitral E to LV E' Septal Ratio 13.2
[2018-02-26 22:43] VITALS: BP 128/64
[2018-02-27 06:47] VITALS: BP 104/62
--- NOTE | 2018-02-27 07:11 | PN- Housestaff ---
Stanley LESLIE,Shirley 02/27/18 0710: Subjective Follow-up For: Syncope UTI Vertigo MARIA TERESA - resolved Left foot pain Tele-Events Since Last Visit: NSR: HR 71-92 Subjective: Patient was seen and examined today. Patient reports increased left knee pain. States pain is tolerable at rest however does increase to a 10/10 with movement. Patient reports that her dizziness has subsided. Denies chest pain, palpitations , shortness of breath, fever, chills, n/v/c/d. Nursing staff reports overnight patient was confused after being awoken for vitals. Patient this morning is alert and oriented and coherent. Review of Systems Constitutional: Reports: see HPI. Objective Last 24 Hrs of Vital Signs/I&O Vital Signs Date Time Temp Pulse Resp B/P B/P Pulse O2 O2 Flow FiO2 Mean Ox Delivery Rate 02/27 0742 74 104/62 02/27 0647 98.6 74 18 104/62 93 Room Air 02/26 2342 97.8 02/26 2243 99.6 97 18 128/64 94 Room Air 02/26 2136 102 128/64 02/26 1600 Room Air 02/26 1506 Room Air Room Air 02/26 1500 98.3 89 20 126/60 93 Intake & Output 02/27 1600 02/27 0800 02/27 0000 Intake Total 220 220 Output Total 600 50 Balance -380 170 Intake, Oral 220 220 Output, Urine 600 50 Patient 130 lb Weight Weight Bed scale Measurement Method Physical Exam General Appearance: Alert, Oriented X3, Cooperative, No Acute Distress HEENT: Atraumatic, Mucous Membr. moist/pink Cardiovascular: Regular Rate, Normal S1, Normal S2, No Murmurs Lungs: Clear to Auscultation, Normal Air Movement Abdomen: Normal Bowel Sounds, Soft, No Tenderness Neurological: Normal Speech, Normal Tone, Sensation Intact, Cranial Nerves 3-12 NL, unable to assess strength in left leg due to pain, 5/5 in other extremities Extremities: No Clubbing, No Cyanosis, Normal Pulses, tenderness, warmth and swelling of left ankle Current Medications: Current Medications Sig/Kvng Start time Last Medication Dose Route Stop Time Status Admin Acetaminophen 1,000 MG Q6P PRN 02/26 1000 AC 02/27 N/A 1 UNIT IV 0814 Allopurinol 100 MG DAILY 02/25 1828 AC 02/27 PO 0742 Aspirin 81 MG DAILY 02/25 1828 AC 02/27 PO 0742 Atorvastatin Calcium 10 MG 1700 02/24 1830 AC 02/26 PO 1735 Ceftriaxone Sodium 1,000 MG Q24H 02/25 220 AC 02/26 IV 2138 Heparin Sodium 5,000 UNIT Q8 02/24 2200 AC 02/27 (Porcine) SC 0551 Insulin Aspart 0 TIDAC 02/25 0800 AC 02/27 SC 0741 Lidocaine 2 PAT DAILY NEEDED PRN 02/26 1015 AC 02/27 TOP 0741 Magnesium Oxide 400 MG BID 02/26 0902 AC 02/27 PO 0742 Metoprolol Tartrate 25 MG BID 02/26 0900 AC 02/27 PO 0742 Tramadol HCl 50 MG Q6P PRN 02/24 2130 AC 02/27 PO 0607 Last 24 Hrs of Lab/Gamal Results Last 24 Hrs of Labs/Mics: Laboratory Tests 02/27/18 0727: Anion Gap 13, Estimated GFR 53 L, BUN/Creatinine Ratio 32.0 H Assessment/Plan Assessment: Patient is an 82 year old female with PMH of DM, h/o TIA, HTN, hyperlipidemia, Guilliane Portillo syndrome, facial shingles (2005)- likely [place] Stubbs Syndrome with resultant chronic vertigo, chronic imbalance, pulmonary nodules, breast carcinoma s/p radiation/tamoxifen, ovarian carcinoma, calcified stable meningioma, LBBB who presents this admission for evaluation of unwitness syncopal episode. Patient is currently being managed on the telemetry floor for the followin. Syncope It is unclear what the patient's syncope is from. It may be multifactorial. Patient has been evaluated by cardiology outpatient. Has a linq recorder which was placed in 2017 due to previous episodes of presyncope. Patient also has had a poor appetite over the past several weeks with borderline hypotension today in thes 90s/40s. Patient has been evaluated by a neurologist and was diagnosed with vertigo which has also been attributed to her syncopal episodes. LINQ interrogated with no arrhythmias which may have precipitated this episode. Patient's MRI is negative for any acute intracranial process. It does show a stable calcified hemangioma. Syncope likely secondary to vertigo in combination with dehydration and UTI. discharge to [facility] today valsartan-hydrochlorathiazide discontinued in setting of borderline hypertension will continue metoprolol continue PT therapy follow up with neurology and cardiology outpatient 2. MARIA TERESA - resolved Likely prerenal azotemia secondary to poor oral intake. - IV fluid hydration - continue to monitor I/O and BUN/Cr - avoid nephrotoxic agents 3. Type II [place] Elevated troponin peaked to 0.36 and downtrended to 0.25. Likely supply demand mismatch in setting of hypotension and MARIA TERESA however need to rule out cardiac etiology. - cardiology consulted. appreciate recommendations - ECHO pending 4. Electrolytes- hypomagnesemia - repleted magnesium - continue to monitor and replete as needed 5. UTI Patient overnight was hallucinating. Patient presented with urinary frequency and incontinence prior to admission which she reports is new for her. Urinalysis +leuk esterase. Patient had a mildly elevated temp of 100.1. Overnight she was started on ceftriaxone. Urine cultures are now growing pansensitive e.coli. - continue IV Ceftriaxone 6. Left knee and foot/ankle pain Patient reported increased pain in left foot. Swelling, tenderness and warmth noted. Patient unable to bear weight. Xray of ankle negative for acute fracture. There is concern for possible gouty flare however this pain and swelling may be secondary to her recent fall prior to admission. - pain control - if pain and swelling worsen- start colchicine outpatient (patient has a history of GI bleed with ibuprofen) Chronic conditions: - continue atorvastatin, aspirin, allopurinol - hold oral hypoglycemic agents - accuchecks TID/qHS with novolog SS - hold metoprolol in setting of hypotension DVT PPx: SQ Heparin Diet: Diabetic diet Code: Full code Problem List: 1. Syncope 2. Vertigo Pain Ratin Pain Location: knee and foot pain Pain Goal: Pain 7 or less Pain Plan: tramadol tylenol lidocaine Tomorrow's Labs & Rationales: none-discharge to STR today Rafael Metcalf MD 02/27/18 1202: Attending MD Review Statement Attending Statement Attending MD Statement: examined this patient, discuss w/resident/PA/BAR WAITER/WAITRESS, agreed w/resident/PA/BAR WAITER/WAITRESS, reviewed EMR data (avail) Attending Assessment/Plan: 82F PMH DM2, TIA, HTN, HL, Guillain Defiance syndrome, h/o shingles with chronic vertigo admitted for syncopal episode, down for >12 hours, with labs showing elevated troponin, low magnesium, with normal EKG. Improved today. Complains of ankle pain. No longer hypotensive, creatinine improved. Suspect syncopal episode is secondary to dehydration and vasovagal episode, rather than cardiac or neurogenic cause. Her chronic vertigo may be a contributing factor as well. 1. Syncope and collapse 2. Type 2 myocardial infarction 3. MARIA TERESA 4. Vertigo 5. Hypomagnesemia Plan - Continue on telemetry - Ankle x-ray - Monitor renal function - PT evaluation for possible inpatient vestibular rehabilitation - Follow cardiology and neurology recommendations - Continue home medications - DVT PPx - Potential discharge later today
[2018-02-27] MEDS ORDERED: TYLENOL EXTRA500 M2 PO (12:43)
[2018-02-27] MEDS ORDERED: LIDODERM1 EACH TOP (12:43)
[2018-02-27] MEDS ORDERED: TRAMADOL HCL50 M1 PO (12:43)
--- NOTE | 2018-02-27 12:52 | Patient Discharge Instructions ---
Discharge Instructions General Discharge Information You were seen/treated for: Syncope Vertigo Urinary Tract Infection Low Blood Pressure Knee Pain Special Instructions: 1. Please follow up with your pcp within 1 weeks of discharge 2. Please follow up with the machine stemmer within 1-2 weeks of discharge 3. Please note your medications have changed. 4. Please call your doctor right away if you experience any lightheadedness, dizziness, fainting, chest pain, palpitations, change in your vision, or shortness of breath. Diet Continue normal diet: No Recommended Diet: Diabetic Activity Full Activity/No Limits: No Activity Self Limited: Yes Acute Coronary Syndrome Inclusion Criteria At DC or during hospital stay patient has or had the following: ACS DIAGNOSIS No Discharge Core Measures Meds if any: Prescribed or Continued at Discharge Meds if any: NOT Prescribed or Continued at Discharge Congestive Heart Failure Inclusion Criteria At DC or during hospital stay patient has or had the following: CHF DIAGNOSIS No Discharge Core Measures Meds if any: Prescribed or Continued at Discharge Meds if any: NOT Prescribed or Continued at Discharge Cerebrovascular accident Inclusion Criteria At DC or during hospital stay patient has or had the following: CVA/TIA Diagnosis No Discharge Core Measures Meds if any: Prescribed or Continued at Discharge Meds if any: NOT Prescribed or Continued at Discharge Venous thromboembolism Inclusion Criteria VTE Diagnosis No VTE Type NONE VTE Confirmed by (Test) NONE Discharge Core Measures - Per Current guidelines, there needs to be overlap - treatment for the first 5 days of Warfarin therapy. - If discharged on Warfarin prior to 5 days of - overlap therapy, the patient will need to be - assessed for post discharge needs including - *Post discharge parental anticoagulation - *Warfarin and/or parental anticoagulation education - *Follow up date to check INR post discharge At least 5 days overlap therapy as Inpatient No Meds if any: Prescribed or Continued at Discharge Note: Overlap Therapy is Warfarin and Anticoagulant Meds if any: NOT Prescribed or Continued at Discharge
[2018-02-27] MEDS ORDERED: MAGNESIUM OXID400 M1 PO (12:54)
--- NOTE | 2018-02-27 14:01 | RADIOLOGY REPORT ---
EXAMINATION: CR LEFT ANKLE. CR LEFT FOOT. CLINICAL INFORMATION: 13 and ankle pain and swelling. Status post fall. COMPARISON: Left foot films dated 04/12/2011. TECHNIQUE: 3 views of the left ankle. 3 views of the left foot. FINDINGS: Left foot and ankle: Diffuse osteopenia. Prominent soft tissue swelling over the medial malleolus. No acute fracture or dislocation in the ankle or the left foot. Ankle mortise intact with mild degenerative changes seen. No ankle joint effusion. There is mild hallux valgus deformity of the first toe with mild degenerative changes at the first MTP joint with joint space narrowing, cystic changes, spurring and soft tissue calcification seen. Prominent plantar calcaneal spur formation seen, consistent with chronic plantar fasciitis. Calcification seen at the Achilles tendon insertion site upon the calcaneus. Calcification also seen along the medial aspect of the hindfoot adjacent to the talus and distal to the medial malleolus. Some heterotopic calcification is also seen at the navicular and medial cuneiform joint. IMPRESSION: 1. Diffuse osteopenia. No acute fracture of the left ankle and the left foot. 2. Mild soft tissue swelling over the medial malleolus. 3. Multilevel degenerative changes seen as discussed above.
[2018-02-27 14:06] VITALS: BP 118/64
--- NOTE | 2018-02-27 16:49 | PN- Cardiology ---
Subjective Subjective: No complaints. Denies lightheadedness, dizziness, near-syncope etc. Objective Vital Signs and I&Os Vital Signs Date Time Temp Pulse Resp B/P B/P Pulse O2 O2 Flow FiO2 Mean Ox Delivery Rate 02/27 1406 97.9 73 20 118/64 92 Nasal Cannula 02/27 0742 74 104/62 02/27 0647 98.6 74 18 104/62 93 Room Air 02/26 2342 97.8 02/26 2243 99.6 97 18 128/64 94 Room Air 02/26 2136 102 128/64 Intake & Output 02/27 1600 02/27 0800 02/27 0000 02/26 1600 02/26 0800 02/26 0000 Intake Total 475 220 220 600 720 420 Output Total 600 50 150 Balance 475 -380 170 450 720 420 Intake, IV 600 300 Intake, Oral 475 220 220 600 120 120 Output, Urine 600 50 150 Patient 130 lb 159 lb Weight Weight Bed scale Bed scale Measurement Method Physical Exam: Well-developed, well-nourished elderly female in no acute distress. Vital signs: See above. Neck: No JVD, no bruits. Lungs: Clear to auscultation bilaterally. Heart: S1, S2 with grade 1-2/6 systolic murmur. No gallop or rub. Abdomen: Soft, nontender, positive bowel sounds. Extremities: No edema. Current Medications: Current Medications Sig/Kvng Start time Last Medication Dose Route Stop Time Status Admin Acetaminophen 500 MG Q6P PRN 02/27 1245 AC PO Acetaminophen 1,000 MG Q6P PRN 02/26 1000 AC 02/27 N/A 1 UNIT IV 0814 Allopurinol 100 MG DAILY 02/24 1828 AC 02/27 PO 0742 Aspirin 81 MG DAILY 02/24 1828 AC 02/27 PO 0742 Atorvastatin Calcium 10 MG 1700 02/24 1830 AC 02/26 PO 1735 Ceftriaxone Sodium 1,000 MG 1530 02/27 1530 AC 02/27 IV 1602 Ceftriaxone Sodium 1,000 MG Q24H 02/25 2200 DC 02/26 IV 2138 Heparin Sodium 5,000 UNIT Q8 02/24 2200 AC 02/27 (Porcine) SC 1327 Insulin Aspart 0 TIDAC 02/25 0800 AC 02/27 SC 1239 Lidocaine 2 PAT DAILY NEEDED PRN 02/26 1015 AC 02/27 TOP 0741 Magnesium Oxide 400 MG BID 02/26 0902 AC 02/27 PO 0742 Metoprolol Tartrate 25 MG BID 02/26 0900 AC 02/27 PO 0742 Tramadol HCl 50 MG Q6P PRN 02/240 02/27 PO 0607 Results Last 48 Hrs of Labs/Mics: Laboratory Tests 02/27/18 0727: Anion Gap 13, Estimated GFR 53 L, BUN/Creatinine Ratio 32.0 H 02/26/18 0630: Anion Gap 15, Estimated GFR 53 L, BUN/Creatinine Ratio 36.0 H, Magnesium 1.5 L, CBC w Diff NO MAN DIFF REQ, RBC 3.92 L, MCV 81.7, MCH 27.5, MCHC 33.7, RDW 15.2 H, MPV 8.3, Gran % 74.9, Lymphocytes % 13.1 L, Monocytes % 10.9 H, Eosinophils % 0.8, Basophils % 0.3, Absolute Granulocytes 7.2 H, Absolute Lymphocytes 1.3, Absolute Monocytes 1.1 H, Absolute Eosinophils 0.1, Absolute Basophils 0 02/26/18 0600: Hemoglobin A1c 8.6 H Assessment/Plan Assessment/Plan [id number] w/ hx fmr tob use, pul nodules, breast ca s/p surgery/radiation/ tamoxifen, ovarian ca, Guillian Portillo syndrome, calcified meningioma, facial shingles & subsequent ch vertigo w/ suspected Saul Stubbs syndrome, gait disorder, previous TIA, mild carotid dz, HTN, HLD, DM, LBBB, NSVT, mild , LVH, & previous presyncope/syncope w/placement of a [employer] LINQ (07/11/2017) who presented following an unwitnessed syncopal episode at home, but also had UTI symptoms w/ decreased p.o. intake, antihypertensive medications, etc. with low- grade temperature, MARIA TERESA, as well as, hypomagnesemia and a modest troponin I elevation. Multiple etiologies were initially felt possible for Mrs. Peterson's presentation , however, the [employer] LINQ Recorder did not reveal any evidence of heart block or dysrhythmias at the time of her syncopal episode. Suspect intravascular depletion was responsible for her presentation. Suspect that her modest troponin I elevation is on the basis of a type II [place] and not an ACS, tachycardia, LVH, etc. Recommendations: * Discontinue telemetry. * Discharge to home. * Encourage increased p.o. intake at home. * Outpatient follow-up. Continue telemetry? No
== END 2018-02-27 17:15 | DRG 281 ==
LOC: ERH 10:36 → ERHI 15:39 → 1NO 15:39 → ENRESERV 16:40 → ENTRNSPT 17:11 → EDTRNSPT 17:24 → EDTRNSPTSTS 17:24 → 1NO 17:28 → CMPTRNSPT 17:48 → 1NO 02-25 07:35
PROVIDERS: Internal Medicine; Physician Assistant; Student in an Organized Health Care Education/Training Program
DX: I21.A1 Myocardial infarction type 2 (principal); G61.0 Guillain-Barre syndrome; N17.9 Acute kidney failure, unspecified; I47.2 Ventricular tachycardia; B02.9 Zoster without complications; E83.42 Hypomagnesemia; B02.21 Postherpetic geniculate ganglionitis; N39.0 Urinary tract infection, site not specified; I50.30 Unspecified diastolic (congestive) heart failure; R55 Syncope and collapse; I44.7 Left bundle-branch block, unspecified; E11.9 Type 2 diabetes mellitus without complications; R42 Dizziness and giddiness; Z86.73 Personal history of transient ischemic attack (TIA), and cerebral infarction without residual deficits; E78.5 Hyperlipidemia, unspecified; Z85.43 Personal history of malignant neoplasm of ovary; Z85.3 Personal history of malignant neoplasm of breast; Z79.84 Long term (current) use of oral hypoglycemic drugs; Z79.82 Long term (current) use of aspirin; D32.9 Benign neoplasm of meninges, unspecified; R79.89 Other specified abnormal findings of blood chemistry; M10.9 Gout, unspecified; I51.7 Cardiomegaly; B96.20 Unspecified Escherichia coli [E. coli] as the cause of diseases classified elsewhere; R41.0 Disorientation, unspecified; K21.9 Gastro-esophageal reflux disease without esophagitis; M25.562 Pain in left knee; M25.572 Pain in left ankle and joints of left foot; M17.0 Bilateral primary osteoarthritis of knee; I11.0 Hypertensive heart disease with heart failure
CPT/HCPCS: 1NSP; 70551; 36415; 36592; 73562-LT; 73562-RT; 73610-LT; 73630-LT; 74176; 81001; 82436; 87086; 93005; 93010; 93306; 96365; 96366; 97110-GO; 97112-GO; 97161-GP; 97530-GO; J0131; J0696; J1644; J3490; J7040